=== PATIENT | female | born 1935 | race Caucasian/White ===

== ENCOUNTER → 2020-02-21 17:12 | Outpatient (CLI) | payer MEDICARE, SELFPAY ==
[2020-02-21 17:31] LABS: Absolute Neutrophil Count 3.2 X10^3/uL (2.0-7.7); Basophil# 0.05 X10^3/uL; Basophil% 0.8 % (0-1); Eosinophil# 0.24 X10^3/uL; Eosinophils% 3.8 % (0-5); Hemoglobin 13.1 g/dL (12.0-15.0); Lymphocyte % 33.5 % (19-41); Mean Corp Hgb Conc 32.8 g/dL (32-36); Mean Corpuscular Hgb 33.2 pg (27.0-32.0); Mean Corpuscular Volume 101.3 fL (81-99); Mean Platelet Vol. 9.7 fl (6.2-12.0); Monocyte# 0.66 X10^3/uL; Monocyte% 10.5 % (0-10); NRBC Flagged by Analyzer 0 % (0-5); Neutrophil % 51.1 % (47-70); Platelet Count 262 K/mm3 (150-450); RBC Distribution Width SD 45.3 fl (35.1-43.9); Red Blood Count 3.95 M/mm3 (4.2-5.4); White Blood Count 6.3 K/mm3 (4.4-11.0)
[2020-02-21 18:32] LABS: Vitamin B12 1170 pg/mL (211-911); Vitamin D,25 Hydroxy 53.8 ng/mL
[2020-02-21 18:52] LABS: AST(SGOT) 24 U/L (15-37); Alanine Aminotransfer ALT/SGPT 24 U/L (13-56); Albumin, Serum 3.7 g/dL (3.2-5.0); Alkaline Phosphatase 94 U/L (45-117); Anion Gap 3 (5-15); BUN 19 mg/dL (7-18); BUN/Creat Ratio 25.2 RATIO (10-20); Calcium,Total 9.6 mg/dL (8.5-10.1); Chloride 107 mmol/L (98-107); Creatinine, Serum 0.75 mg/dL (0.55-1.02); EST Glomerular Filtration Rate 78 mL/min (>60); Est Glom Filt Rate - Afr Amer 94 mL/min (>60); Globulin 3.8 g/dL (2.2-4.2); Glucose 97 mg/dL (74-106); Protein, Total 7.5 g/dL (6.4-8.2); Sodium Level 141 mmol/L (136-145)
[2020-02-22 06:29] LABS: Rapid Plasmin Reagin (RPR) NONREACTIVE (NONREACTIVE)
== END ==
PROVIDERS: PCP Family Medicine Geriatric Medicine; Visit Provider Family Medicine Geriatric Medicine
DX: R53.83 Other fatigue (principal); E55.9 Vitamin D deficiency, unspecified; F03.90 Unspecified dementia, unspecified severity, without behavioral disturbance, psychotic disturbance, mood disturbance, and anxiety
CPT/HCPCS: 36415; 80053; 82306; 82607; 82746; 84443; 85025; 86592

== ENCOUNTER → 2020-02-24 10:51 | Outpatient (CLI) | payer MEDICARE, SELFPAY ==
--- NOTE | 2020-02-24 10:57 | CT_ITS ---
STUDY: CT BRAIN WITHOUT CONTRAST REASON FOR EXAM: Female, 85 years old. DEMENTIA RADIATION DOSAGE (If Supplied By Facility): CTDIvol = ( 44.99 ) mGy, DLP = ( 779.24 ) mGycm TECHNIQUE: Transaxial CT imaging of the brain was performed without administration of intravenous contrast material. Individualized dose optimization techniques were used for this CT. COMPARISON: No relevant priors. FINDINGS: Normal soft tissue structures. Normal calvarium. There is mild cerebral atrophy with widening of the extra-axial spaces and ventricular dilatation. There are areas of decreased attenuation within the white matter tracts of the supratentorial brain, consistent with microvascular disease changes. Normal basal ganglia and thalami. Normal brainstem. Normal cerebellum. There is no intracranial hemorrhage. There are no findings of an acute ischemic infarction. Normal visualized paranasal sinuses. CT/Brain/Head without Contrast IMPRESSION: 1. No intracranial hemorrhage or mass effect. 2. Central parenchymal volume loss. White matter changes that are nonspecific but most commonly associated with chronic small vessel ischemic disease. Electronically Signed: Neftaly Ridley MD (Brooks) at 11:25 EDT , Service support ,
== END ==
LOC: CT 10:54
PROVIDERS: PCP Family Medicine Geriatric Medicine; Referring Provider Family Medicine Geriatric Medicine; Visit Provider Family Medicine Geriatric Medicine
DX: F03.90 Unspecified dementia, unspecified severity, without behavioral disturbance, psychotic disturbance, mood disturbance, and anxiety (principal)
CPT/HCPCS: 70450

== ENCOUNTER → 2020-03-05 16:38 | Outpatient (CLI) | payer MEDICARE, SELFPAY ==
--- NOTE | 2020-03-05 16:42 | RAD_ITS ---
HISTORY: Fall, most pain in right hip. Patient unable to cooperate and refused to do the laterals. ADDITIONAL HISTORY: None provided. EXAMINATION/TECHNIQUE: XR Hips Bilateral with Pelvis when performed; 2 Views Bilateral Number of images including paperwork: 3 COMPARISON: None FINDINGS: BONES: No acute fracture. JOINTS: No subluxation. Severe degenerative changes of the right hip. Moderate degenerative changes of the left hip. Degenerative changes of the visible spine and sacroiliac joints. SOFT TISSUES: No distinct foreign body. RAD/Hips B/L min 2 views w/ Pelvis IMPRESSION: Degenerative changes without acute osseous abnormality. at 0633 Reported and signed by: Ambar Platt MD Electronically Signed: Ambar Platt MD at 6:32 EDT Tel , Service support ,
== END ==
PROVIDERS: PCP Family Medicine Geriatric Medicine; Referring Provider Family Medicine Geriatric Medicine; Visit Provider Family Medicine Geriatric Medicine
DX: M25.559 Pain in unspecified hip (principal); M25.529 Pain in unspecified elbow; W19.XXXA Unspecified fall, initial encounter
CPT/HCPCS: 73521

== ENCOUNTER 2020-03-11 16:53 | Inpatient (IN) | payer MEDICARE, SELFPAY ==
[2020-03-11 16:54] VITALS: BP 125/76; PULSE 87; RESP 16; TEMP 36.4; O2SAT 98; BMI 19.3
--- NOTE | 2020-03-11 17:07 | CT_ITS ---
STUDY: CT PELVIS WITHOUT CONTRAST REASON FOR EXAM: Female, 85 years old. FELL 1 WEEK AGO. SEVERE ALZHEIMERS. CONFUSION. RADIATION DOSAGE (If Supplied By Facility): CTDIvol = ( 12.46 ) mGy, DLP = ( 335.80 ) mGycm TECHNIQUE: Transaxial imaging of the pelvis was performed with oral contrast, and without intravenous administration of contrast material. Individualized dose optimization techniques were used for this CT. COMPARISON: None. FINDINGS: Comminuted mildly displaced fracture of the right superior ramus is present as well as a minimally displaced oblique fracture through the mid aspect of the right inferior pubic ramus. No visualized fractures of the hips or remaining pelvic bony structures. Moderate degenerative changes are present in the right hip joint. Normal urinary bladder. Normal visualized small intestine. There are multiple colonic diverticula of the sigmoid colon consistent with chronic diverticulosis. There is no pelvic fluid. There is no pelvic mass lesion or lymphadenopathy. There is absence of the uterus consistent with a prior hysterectomy. Normal visualized pelvic arteries. A small left inguinal hernia is present containing fat as well as several small bowel loops without incarceration or obstruction. There are diffuse degenerative changes of the visualized lumbar spine. Small left calcified buttock granuloma noted. CT/Pelvis without IV Contrast IMPRESSION: 1. Acute comminuted fracture of the right superior ramus and small oblique fracture through the right inferior pubic ramus. 2. Sigmoid diverticulosis Electronically Signed: Kiran Rodriguez MD at 17:52 EDT , Service support ,
--- NOTE | 2020-03-11 17:07 | CT_ITS ---
STUDY: CT LUMBAR SPINE WITHOUT CONTRAST REASON FOR EXAM: Female, 85 years old. FELL 1 WEEK AGO. SEVERE ALZHEIMERS. CONFUSION. RADIATION DOSAGE (If Supplied By Facility): CTDIvol = ( 15.94 ) mGy, DLP = ( 491.19 ) mGycm TECHNIQUE: The patient was scanned in a multi detector CT scanner. High resolution transaxial imaging was performed. Sagittal and coronal images were reconstructed. Individualized dose optimization techniques were used for this CT. COMPARISON: None FINDINGS: An acute mild compression fracture of the T12 vertebral body is present with minimal cortical offset of the superior endplate fragments and no significant retropulsion. No additional acute fractures are seen. The bony structures are diffusely demineralized. Normal lumbar lordosis. There is no substantial scoliosis. Mild to moderate disc space narrowing is present at the L4-L5 and L5-S1 levels. Anterolisthesis of L4 and L5 of 8.2 mm. Additional multilevel degenerative changes are present. Unremarkable visualized paraspinous soft tissue structures. CT/Spine Lumbar without Contrast IMPRESSION: 1. Mild acute compression fracture of the T12 vertebral body. Electronically Signed: Kiran Rodriguez MD at 17:57 EDT , Service support ,
[2020-03-11 17:11] VITALS: O2SAT 98
--- NOTE | 2020-03-11 17:13 | ED.VIS.GEN ---
History of Present Illness Chief Complaint: Fall Informant: Patient Onset: Days Context: Gradual Onset Timing: Continuous Current Severity: Mild Maximum Severity: Moderate Narrative: The patient is an 85-year-old female with medical history significant for rather advanced dementia who is on Seroquel and Ativan that presents to the emergency department with reported pain after a fall. The patient had a mechanical fall on Wednesday of last week. She landed on her right side. She did follow with her primary care, Dr. Haile. They attempted x-rays and were only able to get a few views of the pelvis. She was doing well, but over the weekend has had some decline where now she is having a difficult time walking. The daughter at bedside who helps care for her states that she will complain intermittently of pain that seems to be in her groin and pelvis. History is hard to gather from the patient given rather advanced dementia. Prior similar symptoms: No Recent Illness/Hospitalization: No Past Medical History - Allergies and Home Meds Allergies/Adverse Reactions: Allergies Penicillins [PCN] Allergy (Verified 03/11/20 16:54) PT UNSURE OF REACTION Primary Care Physician: Tom Haile Chi, MD [Primary Care Provider] - Prior records reviewed: Yes Past Medical History: - - Severe dementia Surgical History: noncontributory Lives: With Family - Family History Maternal Family History: Reports: No pertinent history Paternal Family History: Reports: No pertinent history Review of Systems ROS: Unable to Obtain Physical Exam Vital Signs/Narrative: Vital Signs Temp Pulse Resp BP Pulse Ox 03/11/20 16:54 97.6 F L 87 16 125/76 H 98 Inital Vital Signs reviewed: Yes General: Well nourished, Well developed, No Acute Distress Head: Normocephalic, Atraumatic Eyes: Perrl, EOMI ENT: Moist mucous membranes, No rhinorrhea Neck: Supple, Nontender Cardiovascular: Regular rate, Regular rhythm, No murmurs Respiratory: No distress, CTA bilaterally, Chest nontender Abdomen: Soft, Nontender, Nondistended, Normal bowel sounds Back: Nontender, Normal Inspection Extremities: Nontender, No edema Skin: Normal color, No rash Neurological: Alert, Cranial nerves II-XII grossly intact, Normal Strength, Normal Sensation Psychological: Normal affect, Normal Mood Diagnostic/Tx/Re-eval Clinical Impression(s) from Imaging Studies Lumbar Spine CT 03/11/20 17:07 IMPRESSION: 1. Mild acute compression fracture of the T12 vertebral body. Electronically Signed: Kiran Rodriguez MD at 17:57 EDT , Service support , Pelvis CT 03/11/20 17:07 IMPRESSION: 1. Acute comminuted fracture of the right superior ramus and small oblique fracture through the right inferior pubic ramus. 2. Sigmoid diverticulosis Electronically Signed: Kiran Rodriguez MD at 17:52 EDT , Service support , - Medical Decision Making The patient presents with pelvic pain that is intermittent. She has lost 2 levels of function since her fall. I did look at her x-rays which were relatively unremarkable. I did obtain a CT scan of her pelvis and of her lumbar spine. She does have fractures of the inferior and superior right pubic rami. She also has a T12 compression fracture. Her daughter is very concerned given her diminished function at home and her advanced dementia. I do feel the most prudent plan of care would be admission for physical therapy to determine with the patient's needs are going to be. Family is comfortable with this plan of care. Impression 1. Right pubic rami fracture 2. T12 compression fracture 3. Ambulatory dysfunction ED Disposition - Plan for ED Patient: Referrals: Tom Haile Chi, MD [Primary Care Provider] -
--- NOTE | 2020-03-11 18:15 | CM.ED ---
Social Work Consult: Resources/Support Informant: Dr. Starks Chief Complaint: Patient presenting to the ER after a fall. Marital/Social History: . HCPOA/LW: Patient daughterPina is HCPOA. PCP: Dr. Haile Living Situation: Lives with daughter, son-in-law, and granddaughter. Support/Resources: No active community resources. Mental Health Treatment/History: Denies Prior level of functioning: Wheelchair level recently due to fall and increasing debility. Mental Status Exam: Alert to self. Patient diagnosed with Dementia and per patient daughter is non verbal most of the time. Patient has difficulty with direct commands such as come to the table. Appearance/General Behavior: Pleasant. Patient calm during assessment. Patient would look at and smile towards this social media senior associate with no verbal response. Assessment: Met with patient and patient daughterPina in room. Introduced self and social media senior associate role. Patient/patient daughter agreeable to speaking with this social media senior associate. Pina reports to be primary career development facilitator for patient and Pina's niece (patients granddaughter). Pina's niece is diagnosed with Autism and Pina is has guardianship. Pina reports that Pina's travels and is often not around the home Mon-Fri. Pina reports to not want patient to be roasterman in a shelter and to want to continue with caring for patient in the home. Pina reports that patient PCP, Dr. Haile did broach conversation of Hospice to assist with respite for Pina. Pina tearful and states to not be sure if I am ready for hospice services. This social media senior associate explaining how hospice could help with respite but also other options such as Adult Day Care, PASSPORT and Private Duty aides. During conversation with Pina Starks entering the room and informing that patient will need to be admitted to acute care due to fractures and then would benefit from Senior Living home stay. Pina voicing understanding. This social media senior associate explaining correction vs. extended care stay in a shelter. Pina provided with list of nursing homes, hospice information, private duty aides, PASSPORT, and Adult Day Care. Pina counseled on career development facilitator burnout and confirming to need assistance. This social media senior associate encouraging Pina to explore respite options and to be open to a correction home placement or hospice services. Active support and listening provided. Pina has been primary caregiver for patient for the past 3 years. PLAN: Admit to acute. Social Work to continue to follow. Carol CHRISTENSEN, AZUCENA
--- NOTE | 2020-03-11 18:25 | HP.PCM_ITS ---
History of Present Illness Date of Admission: 03/11/20 Chief Complaint: debility, mechanical fall, The patient is a 85 year old F with a past medical history of significant dementia who was admitted through the ED on 03/11/2020 with a complaint of debility, weakness and mechanical fall. History was taken from the daughter was by her bedside. Patient had a fall about a week ago and landed on her right side. Daughter says she didnt witness the fall. Patient had stepped out with her son in law, and per daughter, it appears she lost her footing and fell. She was unable to ambulate very well and so followed up with her primary care doctor. X-rays were ordered but only few views of the pelvis were obtained as patient was not very cooperative due to her dementia and debility. Over the weekend, patient declined and was having difficulty weightbearing and ambulating as well as transferring. She also can seem to be complained intermittently of pain in her groin and pelvis and right hip. Family therefore decided to bring her into the ED. Review of systems was otherwise negative. The ED, vitals show temperature of 97.6 Fahrenheit with blood pressure of 125/76, pulse rate of 87 and respiratory rate of 16. She was saturating at 98% on room air. CT of the pelvis showed an acute comminuted fracture of the right superior rami and a small oblique fracture through the right inferior pubic rami as well as sigmoid diverticulosis. Lumbar spine CT done showed mild acute compression fracture in the T12 vertebral body. She has been admitted to be managed for debility due to mechanical fall and pubic rami fractures as well as mild compression fracture. [] Past Medical History Allergies Penicillins [PCN] Allergy (Verified 03/11/20 16:54) PT UNSURE OF REACTION Home Medications: Ambulatory Orders Medication Instructions Recorded Galantamine Hbr [Razadyne] 4 mg PO BIDCM 03/11/20 Lorazepam 0.5 - 1 mg PO DAILY PRN 03/11/20 Magnesium Oxide [Magnesium] 250 mg PO DAILY 03/11/20 Quetiapine Fumarate 12.5 mg PO BID 03/11/20 Surgical History: noncontributory Psychiatric History: - - dementia Lives: With Family Smoking Status: Never smoker Alcohol: None Drugs: None - *Family History Maternal History Items: No pertinent history Paternal History Items: Cancer Review of Systems Constitutional: Denies: Chills, Fever, Malaise, Weakness, Weight Change HEENT: Denies: Head Aches, Sinus Congestion, Sinus Drainage Cardiovascular: Denies: Chest Pain, Palpitations Respiratory: Denies: Cough, Shortness of breath at rest, Sputum production Gastrointestinal: Denies: Abdominal Pain, Nausea, Vomiting Genitourinary: Denies: Dysuria Musculoskeletal: Reports: Back Pain, Joint Pain - right hip pain. Denies: Joint Tenderness Skin: Denies: Rash, Wounds Neurological: Denies: Numbness, Tingling, Focal weakness Psychiatric: Denies: Anxiety, Depression, Homicidal Ideations, Suicidal Ideations Hematologic/ Lymphatic: Denies: Easy Bruising, Easy Bleeding VTE Information - Inpt Only VTE Present on Admission: No VTE Pharm Prophylaxis ordered?: Yes - Physical Exam Vitals/I&O's: Vital Signs Temp Pulse Resp BP Pulse Ox 97.6 F L 87 16 125/76 H 98 03/11/20 16:54 03/11/20 16:54 03/11/20 16:54 03/11/20 16:54 03/11/20 17:11 Oxygen Delivery Method Room Air Weight: 113 lb Body Mass Index (BMI) 19.3 General: Alert, Confused, Disoriented HEENT: Atraumatic, PERRLA, EOMI, Normocephalic Oral: Dry Mucosa Neck: Supple, No JVD, Negative Carotid Bruits Lungs: Clear to auscultation, Normal air movement, No rhonchi, No wheeze, No rales Cardiovascular: Regular rate, Regular Rhythm, Normal S1, Normal S2, No murmurs Abdomen: Bowel Sounds Present, Soft, Non Tender, Non-Distended, No Hepato- splenomegaly Extremities: No clubbing, No cyanosis, No edema, Capillary Refill Less than 3 Seconds Skin: No rashes, No breakdown Musculoskeletal: - - mild tenderness on palpation of right hip and lower back, and with flexion of hip joint Lymphatic: No Cervical, Supraclavicular, or Inguinal Adenopathy Neurological: Cranial nerves II-XII grossly intact, Neuro grossly intact Psych/Mental Status: - - confused Assessment/Plan 85-year-old admitted with a complaint of debility. #Debility due to mechanical fall * Lumbar spine CT showed mild acute compression fracture of the T12 vertebral body * CT of the pelvis also showed acute comminuted fracture of the superior pubic rami as well as fracture of the inferior pubic rami. This will likely heal with conservative management, and she will benefit from intensive PT/OT. * orthopedic surgery consulted * Consult PT OT. * Fall precautions. * Consult case management to help with discharge planning as patient will benefit from placement. #Superior and inferior pubic rami fractures due to mechanical fall * As above * PT/PT consult * PO tylenol, PO oxycodone nad IV morphine prn * #Mild compression fracture of T12 due to mechanical fall * as under #debillity and #fracture * If pain is persistent, may need referral to pain management. * #Dementia with behavioral disturbance * On Seroquel and lorazepam * DVT prophylaxis: lovenox Code Status: * Patient's daughter counseled extensively about different types of CODE STATUS including full code, DNR CCA and DNR CCA. Patient still to go tearful incision felt unable to make the decision as she had never feels this kind of situation before. She therefore felt unable to make a decision and would want to think more about it. She says she knows patient is to make a decision due to her dementia and so she the daughter would have to make the decision but would want some more time to think about it. She says her mother does have a living will and she will bring it in tomorrow so we see what it says. * Code Status undecided at this time. * Total vest-cv-ajbk time 17 minutes. Inpatient E&M: 64321 Init Hosp L2 Procedures: 69772 Advncd Care Plan 30 Min
[2020-03-11 18:37] VITALS: BP 137/67; PULSE 60; RESP 16; O2SAT 100
[2020-03-11 19:06] VITALS: BP 137/67; PULSE 60; RESP 15; TEMP 36.4; O2SAT 100
[2020-03-11 19:46] LABS: Absolute Lymphocyte Count 2.05 X10^3/uL (0.83-4.51); Absolute Neutrophil Count 3.6 X10^3/uL (2.0-7.7); Basophil# 0.05 X10^3/uL; Basophil% 0.7 % (0-1); Eosinophil# 0.33 X10^3/uL; Eosinophils% 4.9 % (0-5); Hemoglobin 12.4 g/dL (12.0-15.0); Lymphocyte # 2.05 X10^3/ul (4.0); Lymphocyte % 30.2 % (19-41); Mean Corp Hgb Conc 32.6 g/dL (32-36); Mean Corpuscular Hgb 32.7 pg (27.0-32.0); Mean Corpuscular Volume 100.3 fL (81-99); Mean Platelet Vol. 9.7 fl (6.2-12.0); Monocyte# 0.78 X10^3/uL; Monocyte% 11.5 % (0-10); NRBC Flagged by Analyzer 0 % (0-5); Neutrophil # 3.56 X10^3/uL (2.7-7.7); Neutrophil % 52.4 % (47-70); Platelet Count 301 K/mm3 (150-450); RBC Distribution Width CV 11.9 % (11.6-14.6); RBC Distribution Width SD 44.2 fl (35.1-43.9); Red Blood Count 3.79 M/mm3 (4.2-5.4); White Blood Count 6.8 K/mm3 (4.4-11.0)
[2020-03-11 19:52] VITALS: BP 135/72; PULSE 53; RESP 16; TEMP 36.4; O2SAT 96
[2020-03-11 19:59] VITALS: BMI 19.6
[2020-03-11 20:05] LABS: Anion Gap 4 (5-15); BUN 19 mg/dL (7-18); BUN/Creat Ratio 28.5 RATIO (10-20); Calcium,Total 9.6 mg/dL (8.5-10.1); Chloride 108 mmol/L (98-107); Creatinine, Serum 0.67 mg/dL (0.55-1.02); EST Glomerular Filtration Rate 89 mL/min (>60); Est Glom Filt Rate - Afr Amer 108 mL/min (>60); Glucose 96 mg/dL (74-106); Potassium 4.5 mmol/L (3.5-5.1); Sodium Level 143 mmol/L (136-145)
[2020-03-11 20:10] VITALS: BMI 19.6
--- NOTE | 2020-03-11 20:30 | NURSING ---
Patient pulling telemetry leads off at this time. Left off due to agitation. Daughter requesting to have four side rails up for safety.
[2020-03-11] MEDS: LORazepam 1 MG Tablet PO (20:51)
[2020-03-11] MEDS: QUEtiapine 25 MG Tablet 12.5 MG PO (20:51)
[2020-03-11] MEDS: Morphine 2 MG/ML Syringe IV (21:57)
--- NOTE | 2020-03-11 23:00 | NURSING ---
Pt trying to get OOB, states she has to go. Very restless, setting off bed exit frequently. Pt is alert to self only which is her baseline. Agitated with redirection. Fallon MAGNETIC HEALER in to sit with pt at this time.
[2020-03-11] MEDS: Haloperidol Lactate 5 MG/ML Vial IM (23:44)
[2020-03-12] MEDS: 0.9% Normal Saline 1,000 ML 100 ML IV ×2 (00:19→10:15)
[2020-03-12 02:30] VITALS: BP 93/44; PULSE 82; RESP 18; TEMP 37.2; O2SAT 95
[2020-03-12 06:26] VITALS: BP 111/51; PULSE 67; RESP 16; TEMP 37.2; O2SAT 98
[2020-03-12 06:28] LABS: Absolute Lymphocyte Count 1.71 X10^3/uL (0.83-4.51); Absolute Neutrophil Count 2.4 X10^3/uL (2.0-7.7); Basophil# 0.04 X10^3/uL; Basophil% 0.8 % (0-1); Eosinophil# 0.36 X10^3/uL; Eosinophils% 6.9 % (0-5); Hematocrit 34.1 % (37-47); Hemoglobin 11.2 g/dL (12.0-15.0); Lymphocyte # 1.71 X10^3/ul (4.0); Lymphocyte % 32.8 % (19-41); Mean Corp Hgb Conc 32.8 g/dL (32-36); Mean Corpuscular Hgb 32.7 pg (27.0-32.0); Mean Corpuscular Volume 99.7 fL (81-99); Mean Platelet Vol. 9.3 fl (6.2-12.0); Monocyte# 0.73 X10^3/uL; NRBC Flagged by Analyzer 0 % (0-5); Neutrophil # 2.36 X10^3/uL (2.7-7.7); Neutrophil % 45.3 % (47-70); Platelet Count 265 K/mm3 (150-450); RBC Distribution Width CV 11.9 % (11.6-14.6); RBC Distribution Width SD 43.4 fl (35.1-43.9); Red Blood Count 3.42 M/mm3 (4.2-5.4); White Blood Count 5.2 K/mm3 (4.4-11.0)
[2020-03-12 06:52] LABS: Anion Gap 4 (5-15); BUN 17 mg/dL (7-18); Calcium,Total 8.6 mg/dL (8.5-10.1); Chloride 110 mmol/L (98-107); Creatinine, Serum 0.61 mg/dL (0.55-1.02); EST Glomerular Filtration Rate 99 mL/min (>60); Est Glom Filt Rate - Afr Amer 120 mL/min (>60); Glucose 94 mg/dL (74-106); Potassium 3.7 mmol/L (3.5-5.1); Sodium Level 142 mmol/L (136-145)
--- NOTE | 2020-03-12 07:30 | PCM.PN.HOSP ---
Reason for Visit: Mechanical fall Delirium Subjective: Patient is an 85-year-old lady admitted following acute mechanical fall. Imaging studies demonstrated acute compression fracture involving T12 vertebral body admitted to regular nursing floor for further management. Patient was apparently delirious during the evening Objective: GENERAL: Lethargic but arousable HEENT: Atraumatic; EYES; Anicteric, NECK; supple, normal thyroid, RESPIRATORY: Diminished to auscultation CARDIOVASCULAR: Regular S1 S2, GI: soft, normoactive bowel sounds, : No Renal angle tenderness; EXTREMITIES: No edema, no clubbing, MUSCULOSKELETAL: no muscle waisting NEURO: no lateralizing signs. SKIN: No Rash PSYCH; delirious Vitals/I&O's: Vital Signs Temp Pulse Resp BP Pulse Ox 99.0 F 67 16 111/51 L 98 03/12/20 06:26 03/12/20 06:26 03/12/20 06:26 03/12/20 06:26 03/12/20 06:26 Oxygen Delivery Method Room Air Weight: 51.9 kg Body Mass Index (BMI) 19.6 Intake and Output for Last 24 Hours 03/10/20 03/11/20 03/12/20 23:59 23:59 23:59 Intake Total 400 / 400 Output Total 0 / 0 Balance 400 / 400 Laboratory Results 03/11/20 18:50: WBC 6.8, RBC 3.79 L, Hgb 12.4, Hct 38.0, MCV 100.3 H, MCH 32.7 H, MCHC 32.6, RDW Std Deviation 44.2 H, RDW Coeff of Nidhi 11.9, Plt Count 301, MPV 9.7, Immature Gran % (Auto) 0.300, Neut % (Auto) 52.4, Lymph % (Auto) 30.2, Howell % (Auto) 11.5 H, Eos % (Auto) 4.9, Baso % (Auto) 0.7, Absolute Neuts (auto) 3.6, Absolute Lymphs (auto) 2.05, Nucleated RBC % 0 03/11/20 18:50: Sodium 143, Potassium 4.5, Chloride 108 H, Carbon Dioxide 31.0, Anion Gap 4 L, BUN 19 H, Creatinine 0.67, Estim Creat Clear Calc 33.70, Est GFR (MDRD) Af Amer 108, Est GFR (MDRD) Non-Af 89, BUN/Creatinine Ratio 28.5 H, Glucose 96, Calcium 9.6 03/12/20 05:47: WBC 5.2, RBC 3.42 L, Hgb 11.2 L, Hct 34.1 L, MCV 99.7 H, MCH 32.7 H, MCHC 32.8, RDW Std Deviation 43.4, RDW Coeff of Nidhi 11.9, Plt Count 265, MPV 9.3, Immature Gran % (Auto) 0.200, Neut % (Auto) 45.3 L, Lymph % (Auto) 32.8, Howell % (Auto) 14.0 H, Eos % (Auto) 6.9 H, Baso % (Auto) 0.8, Absolute Neuts (auto) 2.4, Absolute Lymphs (auto) 1.71, Nucleated RBC % 0 03/12/20 05:47: Sodium 142, Potassium 3.7, Chloride 110 H, Carbon Dioxide 28.0, Anion Gap 4 L, BUN 17, Creatinine 0.61, Estim Creat Clear Calc 33.70, Est GFR (MDRD) Af Amer 120, Est GFR (MDRD) Non-Af 99, BUN/Creatinine Ratio 28.0 H, Glucose 94, Calcium 8.6 Current Medications Acetaminophen (Tylenol) 650 mg PO Q6H PRN PRN PRN Reason: Pain Score 1-10/Temp > 100.7 F Enoxaparin Sodium (Lovenox) 40 mg SC DAILY [facility] Sodium Chloride () 1,000 mls @ 100 mls/hr IV .Q10H [facility] Stop: 03/12/20 18:59 Last Admin: 03/12/20 00:19 Dose: 100 mls/hr Documented by: Lorazepam (Ativan) 1 mg PO DAILY PRN PRN Reason: ANXIETY Last Admin: 03/11/20 20:51 Dose: 1 mg Documented by: Morphine Sulfate () 2 mg IV Q3H PRN PRN PRN Reason: Pain Score 6-10/10 Last Admin: 03/11/20 21:57 Dose: 2 mg Documented by: Ondansetron HCl (Zofran) 4 mg IV Q8H PRN PRN PRN Reason: NAUSEA/VOMITING Oxycodone HCl (Oxyir) 5 mg PO Q4H PRN PRN PRN Reason: Pain Score 4-5/10 Quetiapine Fumarate (Seroquel) 12.5 mg PO BID JUAN Last Admin: 03/11/20 20:51 Dose: 12.5 mg Documented by: Sodium Chloride () 10 - 40 ml IV UD PRN PRN Reason: SALINE FLUSH STROKE Vital Signs/Narrative: Vital Signs Temp Pulse Resp BP Pulse Ox 03/12/20 06:26 99.0 F 67 16 111/51 L 98 Medical Necessity - Tobacco Use Smoking Status: Never smoker Tobacco Use: Non-smoker Assessment/Plan Patient is an 85-year-old lady admitted following acute mechanical fall. Imaging studies demonstrated acute compression fracture involving T12 vertebral body admitted to regular nursing floor for further management. Patient was apparently delirious during the evening 1. Acute mechanical fall with T12 vertebral compression fracture and acute comminuted fracture of the superior pubic rami as well as inferior pubic rami -Admitted to regular nursing floor for conservative management including PT OT, pain management 2. Physical debility ?Secondary to above 3. Dementia with behavioral disturbance ?Patient was placed on Seroquel at night with sitter by the bedside 4. DVT Prophylaxis ?Lovenox Code Status; family yet to decide Inpatient E&M: 17470 Subs Hosp L2
[2020-03-12] MEDS: Acetaminophen 325 MG Tablet 650 MG PO ×2 (08:43→15:18)
[2020-03-12] MEDS: oxyCODONE 5 MG Tablet PO ×2 (08:43→18:28)
[2020-03-12] MEDS: QUEtiapine 25 MG Tablet 12.5 MG PO ×2 (08:43→21:44)
[2020-03-12] MEDS: Enoxaparin 40 MG/0.4 ML Syringe SC (08:44)
--- NOTE | 2020-03-12 08:46 | CASEMGMT ---
Social Work Note HCPOA an LW are on pt's chart. Scarlett Belcher HEEL FORMER, CASTING HOUSE LABORER
[2020-03-12 09:56] VITALS: BP 94/50; PULSE 70; RESP 16; TEMP 36.5; O2SAT 96
--- NOTE | 2020-03-12 12:03 | CASEMGMT ---
Social Work Note ABHISHEK reviewed notes. Carol ZENG spoke with pt's daughter Pina who is pt's caregiver and HCPOA for pt and Pina was provided information and resources for nursing homes, Hospice, private duty aides, PASSPORT, and Adult Day Care. ABHISHEK placed a call to Pina to continue discussion of discharge plans. ABHISHEK introduced self and role at [facility]. Pina states that if pt is able to return home at all she prefers for pt to return home with assistance in the home. Pina states she is adamant about not sending pt to SNF/ECF for intermediate frame tender care. ABHISHEK asked Pina about putting pt on TCU list in the event that SNF is needed. Pina states she is agreeable to putting pt on TCU list in the event SNF is needed. Pina asked for RN to call regarding medical update. RN updated. ABHISHEK placed a call to Karina in TCU and left message regarding referral. Pt will need to be sitter and haldol free for 24 hours before being able to admit to SNF. Plan: TBD. Pina prefers to take pt home at discharge. Pt is on TCU list in the event SNF is needed. Scarlett Belcher HEMATOLOGY NURSE, OFFICE CLERK ASSISTANT
[2020-03-12] MEDS: Magnesium Chloride 64 MG Delay Rel.Tablet 128 MG PO (12:40)
[2020-03-12 14:02] VITALS: BP 99/52; PULSE 73; RESP 16; TEMP 36.9; O2SAT 96
[2020-03-12] MEDS: Galantamine Hydrobromide 4 MG Tablet PO (15:21)
--- NOTE | 2020-03-12 16:01 | CHAPLAIN ---
Type of Pastoral Visit _x__ Initial Visit ___ Follow-up Visit ___ On-call Visit ___ General Patient Visit ___ Spiritual Assessment ___ Family Conference ___ Bereavement ___ Rapid Response ___ Code Blue ___ Other (describe below) Pastoral Care Referral From ___ Patient _x__ Family _x__ Nurse ___ Physician ___ Criminology Professor ___ Mobile Battery Technician ___ Other (describe below) Sacrament/Intervention ___ Active listening ___ Anointing ___ Presybeterian ___ Bereavement ___ Communion ___ Teresita exploration ___ ___ Life review _x__ Prayer ___ Reconciliation ___ Sacrament of Sick _x__ Supportive presence ___ Wedding ___ Other (describe below) Pastoral Comments patient was alert; RN had just finished with pt in room; this director video sat at bedside and interacted with patient; when she would laugh this director video would laugh, when patient spoke some unknown words, this director video repeated them; when pt spoke known words this director video would repeat and pt would say 'yes' or nod head; pt was calm and at end of time together the patient initiated a verbal thank you several times;
--- NOTE | 2020-03-12 16:21 | CONS.ORTHO ---
Problem List (1) Fracture of right inferior pubic ramus Status: Acute Qualifiers: Encounter type: initial encounter Fracture type: closed Qualified Code(s): S32.591A - Other specified fracture of right pubis, initial encounter for closed fracture (2) Fracture of right superior pubic ramus Status: Acute Qualifiers: Encounter type: initial encounter Fracture type: closed Qualified Code(s): S32.511A - Fracture of superior rim of right pubis, initial encounter for closed fracture - Consult Date of Consult: 03/12/20 - Reason for Consult This is an 85-year-old female who experienced a mechanical fall landing on her right side approximately 1 week ago. The patient was initially under the care of her primary care provider Dr. Haile. The family noticed the patient was declining significantly over this past weekend. It was brought into the emergency room.
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
[2020-03-12] MEDS: 0.9% Saline Lock 10 ML Syringe IV (19:12)
[2020-03-12] MEDS: Morphine 2 MG/ML Syringe IV (19:12)
[2020-03-12 19:54] VITALS: BP 156/63; PULSE 89; RESP 18; TEMP 37; O2SAT 96
[2020-03-13 05:42] LABS: Hemoglobin 11.2 g/dL (12.0-15.0); Mean Corp Hgb Conc 32.9 g/dL (32-36); Mean Corpuscular Hgb 32.7 pg (27.0-32.0); Mean Corpuscular Volume 99.1 fL (81-99); Mean Platelet Vol. 9.2 fl (6.2-12.0); Platelet Count 260 K/mm3 (150-450); RBC Distribution Width CV 11.9 % (11.6-14.6); RBC Distribution Width SD 43.8 fl (35.1-43.9); Red Blood Count 3.43 M/mm3 (4.2-5.4)
[2020-03-13 06:15] LABS: Anion Gap 5 (5-15); BUN 13 mg/dL (7-18); BUN/Creat Ratio 23.4 RATIO (10-20); Chloride 108 mmol/L (98-107); Creatinine, Serum 0.56 mg/dL (0.55-1.02); EST Glomerular Filtration Rate 111 mL/min (>60); Est Glom Filt Rate - Afr Amer 134 mL/min (>60); Glucose 100 mg/dL (74-106); Magnesium 2.3 mg/dL (1.6-2.6); Potassium 3.9 mmol/L (3.5-5.1); Sodium Level 139 mmol/L (136-145)
[2020-03-13 06:35] VITALS: BP 164/79; PULSE 94; RESP 16; TEMP 36.7; O2SAT 98
[2020-03-13] MEDS: oxyCODONE 5 MG Tablet PO ×2 (06:45→13:10)
[2020-03-13] MEDS: Magnesium Chloride 64 MG Delay Rel.Tablet 128 MG PO (08:35)
[2020-03-13] MEDS: QUEtiapine 25 MG Tablet 12.5 MG PO ×2 (08:35→22:07)
[2020-03-13] MEDS: Galantamine Hydrobromide 4 MG Tablet PO ×2 (08:36→16:31)
[2020-03-13] MEDS: Enoxaparin 40 MG/0.4 ML Syringe SC (08:44)
[2020-03-13 08:57] VITALS: BP 124/47; PULSE 85; RESP 16; TEMP 37.1; O2SAT 93
[2020-03-13 14:22] VITALS: BP 134/64; PULSE 80; RESP 16; TEMP 36.7; O2SAT 99
--- NOTE | 2020-03-13 16:03 | CASEMGMT ---
Addendum entered by Scarlett Belcher 03/13/20 16:24: Pt's daughter Pina is present at [facility]. SW in to speak with Pina. Pina confirms plan is TCU at discharge. SW answered Pina's questions regarding TCU. SW updated Pina that plan will be TCU tomorrow. Pina states understanding. SW placed a call to Karina in TCU and updated her plan is TCU tomorrow. Plan: TCU tomorrow Original Note: Social Work Note SW updated by physician that pt's daughter Pina is agreeable to TCU at discharge. SW placed a call to Karina in TCU and left message. SW received message from Karina in TCU requesting discharge tomorrow. SW updated physician. Plan: TCU Tomorrow Scarlett Belcher PLATE FORMER, FOREST ECONOMICS PROFESSOR
--- NOTE | 2020-03-13 19:06 | PCM.PROGNOTE ---
Patient Problems: Active and Suspected Problems Fracture of right inferior pubic ramus (Acute) Fracture of right superior pubic ramus (Acute) Subjective: Seen and examined today, she remains confused and her speech is not fluent. I talked to her daughter who was in the room today, her daughter has consented to let her go short-term to TCU for rehab services. There will not be a bed until tomorrow for this. - Physical Exam Vitals/I&O's: Vital Signs Temp Pulse Resp BP Pulse Ox 98.1 F 80 16 134/64 H 99 03/13/20 14:22 03/13/20 14:22 03/13/20 14:22 03/13/20 14:22 03/13/20 14:22 Oxygen Delivery Method Room Air Weight: 51.9 kg Body Mass Index (BMI) 19.6 Intake and Output for Last 24 Hours 03/11/20 03/12/20 03/13/20 23:59 23:59 23:59 Intake Total 2598.33 / 2598.33 550 / 550 Output Total 700 / 700 900 / 900 Balance 1898.33 / 1898.33 -350 / -350 General: Alert, Cooperative, No apparent distress, Well developed HEENT: Atraumatic, PERRLA, EOMI, Normocephalic Oral: Moist Mucosa Neck: Supple, Trachea Midline, Thyroid Normal Size and Texture Lungs: Clear to auscultation, Normal air movement, No rhonchi, No wheeze, No rales Cardiovascular: Regular rate, Regular Rhythm, Normal S1, Normal S2, No murmurs, PMI Normal, No rub noted, No Gallop Abdomen: Bowel Sounds Present, Soft, Non Tender, Non-Distended Extremities: No clubbing, No cyanosis, No edema, Capillary Refill Less than 3 Seconds Skin: No rashes, No breakdown Musculoskeletal: No Tenderness to Palpation of Joints or Extremities Neurological: Cranial nerves II-XII grossly intact, Neuro grossly intact, Sensory exam intact to light touch and pain Psych/Mental Status: - - Alert but confused, she is not able to converse coherently with this examiner Laboratory Results 03/13/20 05:04: WBC 5.0, RBC 3.43 L, Hgb 11.2 L, Hct 34.0 L, MCV 99.1 H, MCH 32.7 H, MCHC 32.9, RDW Std Deviation 43.8, RDW Coeff of Nidhi 11.9, Plt Count 260, MPV 9.2 03/13/20 05:04: Sodium 139, Potassium 3.9, Chloride 108 H, Carbon Dioxide 26.0, Anion Gap 5, BUN 13, Creatinine 0.56, Estim Creat Clear Calc 33.70, Est GFR (MDRD) Af Amer 134, Est GFR (MDRD) Non-Af 111, BUN/Creatinine Ratio 23.4 H, Glucose 100, Calcium 9.0, Magnesium 2.3 03/13/20 16:00: COVID-19 (MERRY) Pending Current Medications Acetaminophen (Tylenol) 650 mg PO Q6H PRN PRN PRN Reason: Pain Score 1-10/Temp > 100.7 F Last Admin: 03/12/20 15:18 Dose: 650 mg Documented by: Enoxaparin Sodium (Lovenox) 40 mg SC DAILY [facility] Last Admin: 03/13/20 08:44 Dose: 40 mg Documented by: [facility] Last Admin: 03/13/20 16:31 Dose: 4 mg Documented by: Lorazepam (Ativan) 1 mg PO DAILY PRN PRN Reason: ANXIETY Last Admin: 03/11/20 20:51 Dose: 1 mg Documented by: Magnesium Chloride ([id number]) 128 mg PO DAILY [facility] Last Admin: 03/13/20 08:35 Dose: 128 mg Documented by: Morphine Sulfate () 2 mg IV Q3H PRN PRN PRN Reason: Pain Score 6-10/10 Last Admin: 03/12/20 19:12 Dose: 2 mg Documented by: Nutritional Formula (Lactose Free) (Ensure Enlive) 120 ml PO 4X/DAY [facility] Last Admin: 03/13/20 16:32 Dose: 120 ml Documented by: Ondansetron HCl (Zofran) 4 mg IV Q8H PRN PRN PRN Reason: NAUSEA/VOMITING Oxycodone HCl (Oxyir) 5 mg PO Q4H PRN PRN PRN Reason: Pain Score 4-5/10 Last Admin: 03/13/20 13:10 Dose: 5 mg Documented by: Quetiapine Fumarate (Seroquel) 12.5 mg PO BID [facility] Last Admin: 03/13/20 08:35 Dose: 12.5 mg Documented by: Sodium Chloride () 10 - 40 ml IV UD PRN PRN Reason: SALINE FLUSH Last Admin: 03/12/20 19:12 Dose: 10 ml Documented by: Medical Necessity - Tobacco Use Smoking Status: Never smoker Tobacco Use: Non-smoker Assessment/Plan All Active Problems Fracture of right inferior pubic ramus (Acute) Fracture of right superior pubic ramus (Acute) #1 T12 vertebral compression fracture secondary to osteoporosis-continue pain control, patient will need placement in jail facility for short-term rehab services #2 fracture of the superior pubic rami and inferior pubic rami-pain medicines will be adjusted as needed, continue PT and OT, patient will need short-term rehab services in a jail facility #3 Alzheimer's dementia #4 generalized physical debility secondary to multiple medical problems including advanced age and Alzheimer's dementia #5 osteoporosis-patient will need treatment for this with bisphosphonate and calcium supplement Inpatient E&M: 46621 Subs Hosp L2
[2020-03-13 19:47] LABS: Probe Check PASS; Specimen Processing Control PASS
[2020-03-13 21:59] VITALS: BP 148/76; PULSE 86; RESP 18; TEMP 37.1; O2SAT 99
[2020-03-14 03:13] VITALS: BP 144/73; PULSE 75; RESP 16; TEMP 36.5; O2SAT 95
[2020-03-14 05:28] LABS: Hemoglobin 11.8 g/dL (12.0-15.0); Mean Corp Hgb Conc 33.7 g/dL (32-36); Mean Corpuscular Hgb 32.8 pg (27.0-32.0); Mean Corpuscular Volume 97.2 fL (81-99); Mean Platelet Vol. 8.8 fl (6.2-12.0); Platelet Count 266 K/mm3 (150-450); RBC Distribution Width CV 11.9 % (11.6-14.6); RBC Distribution Width SD 42.6 fl (35.1-43.9); White Blood Count 6.2 K/mm3 (4.4-11.0)
[2020-03-14 05:40] LABS: Anion Gap 6 (5-15); BUN 15 mg/dL (7-18); BUN/Creat Ratio 27.1 RATIO (10-20); Chloride 106 mmol/L (98-107); Creatinine, Serum 0.55 mg/dL (0.55-1.02); EST Glomerular Filtration Rate 111 mL/min (>60); Est Glom Filt Rate - Afr Amer 134 mL/min (>60); Glucose 116 mg/dL (74-106); Potassium 3.7 mmol/L (3.5-5.1); Sodium Level 139 mmol/L (136-145)
[2020-03-14] MEDS: QUEtiapine 25 MG Tablet 12.5 MG PO (09:01)
[2020-03-14] MEDS: Magnesium Chloride 64 MG Delay Rel.Tablet 128 MG PO (09:01)
[2020-03-14] MEDS: Galantamine Hydrobromide 4 MG Tablet PO (09:02)
[2020-03-14] MEDS: Enoxaparin 40 MG/0.4 ML Syringe SC (09:02)
[2020-03-14] MEDS: Calcium Carb/Vitamin D 1 TABLET Tablet PO (09:04)
[2020-03-14 09:40] VITALS: BP 122/81; PULSE 86; RESP 16; TEMP 36.5; O2SAT 95
--- NOTE | 2020-03-14 11:52 | PCM.TXEXTCAR ---
- Diet 03/11/20 19:35 Diet: Regular - General Food consistency:: Regular Liquid Consistency:: Regular/Thin Type of Dietary Supplement:: Ensure Enlive Is pt able to select menu?: No - Therapies Weight Bearing: Weight bearing as tolerated Physical Therapy: Eval and Treat Occupational Therapy: Eval and Treat - Problem/Diagnosis (1) Thoracic compression fracture Status: Acute Current Visit: Yes (2) Fracture of right inferior pubic ramus Status: Acute Current Visit: Yes (3) Fracture of right superior pubic ramus Status: Acute Current Visit: Yes (4) Osteoporosis Status: Chronic Current Visit: Yes - Allergies/Procedures Done in Hospital Allergies/Adverse Reactions: Allergies Penicillins [PCN] Allergy (Verified 03/11/20 16:54) PT UNSURE OF REACTION Procedures: None - Type of Care/Length of Stay Estimated LOS: Convalescent Care Less Than 30 days Type of Care Needed: Skilled Rehab Potential: Good Prognosis: Good - Additional Orders/Day of Discharge H&P will serve as current which was dated: 03/11/20 Day of Discharge: 03/14/20 - Dietary and Speech Recommendations Dietitian Recommendations/Changes: Continue regular diet. Will add ensure enlive 120mL 4x/day - Follow Up Care Primary Care Physician: Tom Haile Chi, MD [Primary Care Provider] -
--- NOTE | 2020-03-14 12:35 | PHA.DC.MR ---
Pharmacy Service has performed discharge medication reconciliation for this patient. The patient's discharge medication list was reviewed for discrepancies and discrepancies were resolved. Home Medications Galantamine Hbr [Razadyne] 4 mg PO BIDCM 03/11/20 Quetiapine Fumarate 12.5 mg PO BID 03/11/20 Acetaminophen [Tylenol] 650 mg PO Q4H PRN PRN #1 tab 03/14/20 Alendronate Sodium [Fosamax] 70 mg PO Q7D@0700 #1 tab 03/14/20 Calcium Carb/Vitamin D [Os-Shashi 500MG + D] 1 tab PO BIDCM tab 03/14/20 Ensure Enlive 120 ml PO 4X/DAY liquid 03/14/20
--- NOTE | 2020-03-14 13:31 | CASEMGMT ---
Social Work Note Pt is able to discharge to TCU today. SW placed a call to Karina in TCU and updated her. SW updated RN. Pt's daughter Pina at [facility]. SW updated Pina on discharge to TCU today. Plan: TCU today Scarlett Belcher CHUTE BUILDER, ANALYSIS EVALUATOR
[2020-03-14 14:30] VITALS: BP 132/76; PULSE 84; RESP 16; TEMP 36.9; O2SAT 99
--- NOTE | 2020-03-14 14:41 | NURSING ---
report called to Sole PERES on TCU
--- NOTE | 2020-03-14 14:50 | CHAPLAIN ---
Type of Pastoral Visit ___ Initial Visit _x__ Follow-up Visit ___ On-call Visit ___ General Patient Visit ___ Spiritual Assessment ___ Family Conference ___ Bereavement ___ Rapid Response ___ Code Blue ___ Other (describe below) Pastoral Care Referral From ___ Patient _x__ Family ___ Nurse ___ Physician ___ Scroll Machine Operator ___ Blow Mold Machine Operator ___ Other (describe below) Sacrament/Intervention _x__ Active listening ___ Anointing ___ Pentecostal ___ Bereavement ___ Communion ___ Teresita exploration ___ ___ Life review _x__ Prayer ___ Reconciliation ___ Sacrament of Sick _x__ Supportive presence ___ Wedding ___ Other (describe below) Pastoral Comments met with daughter as patient slept; daughter has desire to be present as long as she can until the quarantine period begins in TCU; daughter explains mother's situation and dementia; this millwright supervisor offers support and affirmation; millwright supervisor reviews his visit on Wednesday with pt to her daughter; daughter requests future contact and presence with this patient after her transfer to TCU; pt would welcome spiritual care according to daughter;
--- NOTE | 2020-03-16 08:09 | PCM.DC.SUM ---
Discharge Date and Diagnosis - Problem List Patient Problems: Active and Suspected Problems Debility (Acute) Fall (Acute) Pelvis fracture (Acute) T12 compression fracture (Acute) Date of Admission: 03/11/20 Date of Discharge: 03/14/20 - Primary Discharge Diagnosis Acute Problems: Active Problems #1 T12 vertebral compression fracture secondary to osteoporosis #2 fracture of the superior pubic rami and inferior pubic rami-secondary to osteoporosis #3 Alzheimer's dementia #4 generalized physical debility secondary to multiple medical problems including advanced age and Alzheimer's dementia #5 osteoporosis - Secondary Discharge Diagnosis Chronic Problems: Chronic Problems Osteoporosis (Chronic) Mixed dementia (Chronic) Behavioral problem (Chronic) Hallucinations (Chronic) Sigmoid diverticulosis (Chronic) Hospital Course and Treatment Operations: None Procedures: None Summary of Care Provided: The patient is a 85 year old F presented to the emergency room at [facility] for evaluation after a fall at home, patient has significant Alzheimer's dementia and she had a mechanical fall approximately 6 days ago. Work-up in the emergency room included a CT scan of her pelvis and lumbar spine, there were noted to be fractures of the inferior and superior right pubic rami and also a T12 compression fracture, these appear to be acute. Patient was admitted to the third floor [facility], she was maintained on her home medications. She was seen by PT and OT and she was felt to benefit from inpatient care home services. Arrangements were made for the patient to go to TCU for these services. On 03/14/2020, patient was seen and examined: General: Alert, Cooperative, No apparent distress, Well developed HEENT: Atraumatic, PERRLA, EOMI, Normocephalic Oral: Moist Mucosa Neck: Supple, Trachea Midline, Thyroid Normal Size and Texture Lungs: Clear to auscultation, Normal air movement, No rhonchi, No wheeze, No rales Cardiovascular: Regular rate, Regular Rhythm, Normal S1, Normal S2, No murmurs, PMI Normal, No rub noted, No Gallop Abdomen: Bowel Sounds Present, Soft, Non Tender, Non-Distended Extremities: No clubbing, No cyanosis, No edema, Capillary Refill Less than 3 Seconds Skin: No rashes, No breakdown Musculoskeletal: No Tenderness to Palpation of Joints or Extremities Neurological: Cranial nerves II-XII grossly intact, Neuro grossly intact, Sensory exam intact to light touch and pain Psych/Mental Status: - - Alert but confused, she is not able to converse coherently with this examiner On 03/14/2020, patient was seen and examined and felt to be in stable condition for transfer to TCU for inpatient rehab services. Patient Problems: Active and Suspected Problems Debility (Acute) Fall (Acute) Pelvis fracture (Acute) T12 compression fracture (Acute) - Physical Exam Vitals/I&O's: Vital Signs Temp Pulse Resp BP Pulse Ox 98.4 F 84 16 132/76 H 99 03/14/20 14:30 03/14/20 14:30 03/14/20 14:30 03/14/20 14:30 03/14/20 14:30 Oxygen Delivery Method Room Air Weight: 51.9 kg Body Mass Index (BMI) 19.6 Intake and Output for Last 24 Hours 03/14/20 03/15/20 03/16/20 23:59 23:59 23:59 Intake Total 350 / 350 Output Total 0 / 0 Balance 350 / 350 Home Medications: Medications to take at Discharge Galantamine Hbr [Razadyne] 4 mg PO BIDCM 03/11/20 Quetiapine Fumarate 12.5 mg PO BID 03/11/20 Acetaminophen [Tylenol] 650 mg PO Q4H PRN PRN #1 tab 03/14/20 Alendronate Sodium [Fosamax] 70 mg PO Q7D@0700 03/14/20 Calcium Carb/Vitamin D [Os-Shashi 500MG + D] 1 tab PO BIDCM 03/14/20 Ensure Enlive 120 ml PO 4X/DAY 03/14/20 Following Prescriptions Were Given to Patient: Acetaminophen [Tylenol] 650 mg PO Q4H PRN PRN #1 tab PRN Reason: Pain Score 1-10/10 Primary Care Physician: Tom Haile Chi, MD [Primary Care Provider] - Disposition: Residential facility Minutes spent on discharge:: 32 Patient Condition:: Stable Medical Necessity - Tobacco Use Smoking Status: Never smoker Tobacco Use: Non-smoker Meaningful Use Info Meaningful Use Diagnoses (Choose all that apply): None applicable Inpatient E&M: 12280 Disch Hosp
== END 2020-03-14 14:48 | disposition skilled nursing facility (03) | DRG 536 ==
LOC: ED 17:46 → MS3 19:11
PROVIDERS: Internal Medicine; Admitting Provider Student in an Organized Health Care Education/Training Program; Emergency Provider Emergency Medicine; PCP Family Medicine Geriatric Medicine; Visit Provider Internal Medicine
DX: S32.511A Fracture of superior rim of right pubis, initial encounter for closed fracture (principal); M80.051A Age-related osteoporosis with current pathological fracture, right femur, initial encounter for fracture; F02.81 Dementia in other diseases classified elsewhere, unspecified severity, with behavioral disturbance; R44.3 Hallucinations, unspecified; G30.9 Alzheimer's disease, unspecified; W18.30XA Fall on same level, unspecified, initial encounter; Y92.009 Unspecified place in unspecified non-institutional (private) residence as the place of occurrence of the external cause; Z66 Do not resuscitate; K57.30 Diverticulosis of large intestine without perforation or abscess without bleeding
CPT/HCPCS: 36415; 72131; 72192; 80048; 83735; 85025; 85027; 87635; 97116; 97162; 97166; 97530; 99284; J7030; A4216; U0003

== ENCOUNTER 2020-03-14 15:04 | Inpatient (IN) | payer MEDICARE, SELFPAY ==
[2020-03-14 15:10] VITALS: PULSE 84; RESP 16
[2020-03-14 15:25] VITALS: BMI 19.8
[2020-03-14 15:29] VITALS: BP 130/82; PULSE 77; RESP 18; TEMP 36.6; O2SAT 92
[2020-03-14 15:51] VITALS: BP 130/82; PULSE 77; RESP 18; TEMP 36.6; O2SAT 92
[2020-03-14 15:52] VITALS: BMI 19.8
--- NOTE | 2020-03-14 15:59 | NURSING ---
FREDDY Kimball provided verbal consent for admission documentation and stated the patient is to be a DNRCC. Elizabeth Ambrosio RN also verbally confirmed this.
[2020-03-14] MEDS: LORazepam 2 MG/ML Syringe 1 MG IM (19:44)
--- NOTE | 2020-03-14 19:44 | NURSING ---
Pt agitated climbing out of bed, climbing out of chair, swinging at staff. Not able to be redirected. Pt brought out to nurses station. Dr. Haile updated. New order for 1mg IM Ativan.
[2020-03-14] MEDS: QUEtiapine 25 MG Tablet 12.5 MG PO (20:24)
--- NOTE | 2020-03-14 21:08 | PCM.HP.STD ---
Problem List (1) Debility Status: Acute (2) Fall Status: Acute (3) Pelvis fracture Status: Acute (4) T12 compression fracture Status: Acute (5) Mixed dementia Status: Chronic (6) Behavioral problem Status: Chronic (7) Hallucinations Status: Chronic (8) Sigmoid diverticulosis Status: Chronic History of Present Illness Date of Admission: 03/14/20 Chief Complaint: Here for rehabilitation, strengthening, prior to discharge home with family. 03/04/20 Fall in parking lot. 03/05/20 Unable to obtain X-rays due to patient behaviors. 03/11/20 The patient is a 85 year old Female with below past medical history presented to [facility] with fall, landed right side. 03/11/20 CT Lumbar spine showed acute T12 compression fracture. 03/11/20 CT pelvis showed acute pelvis fracture. Pain in groin, pelvis. Unable to walk. 03/11/20 Admit to Hospital. PT/OT, Consult Orthopedics. Tylenol, Oxycodone, Morphine for pain. 03/12/20 Seroquel, sitter for behavioral problems, sundowning. 03/12/20 Orthopedics recommended weight bearing as tolerated, ambulated with walker. Lovenox for DVT prophylaxis. Pain control. No surgical intervention recommended. n 03/13/20 PT/OT [facility]. 03/14/20 Admit to TCU with debility, here for rehabilitation, strengthening, prior to discharge home with family. On admission, resident violent, swinging at nursing staff, Ativan 1MG IM given. Past Medical History Past Medical History (Chronic Problems): Chronic Problems Osteoporosis (Chronic) Mixed dementia (Chronic) Behavioral problem (Chronic) Hallucinations (Chronic) Sigmoid diverticulosis (Chronic) Allergies Penicillins [PCN] Allergy (Verified 03/11/20 16:54) PT UNSURE OF REACTION Home Medications: Ambulatory Orders Medication Instructions Recorded Galantamine Hbr [Razadyne] 4 mg PO BIDCM 03/11/20 Quetiapine Fumarate 12.5 mg PO BID 03/11/20 Acetaminophen [Tylenol] 650 mg PO Q4H PRN PRN #1 tab 03/14/20 Alendronate Sodium [Fosamax] 70 mg PO Q7D@0700 03/14/20 Calcium Carb/Vitamin D [Os-Shashi 1 tab PO BIDCM 03/14/20 500MG + D] Ensure Enlive 120 ml PO 4X/DAY 03/14/20 Surgical History: - - Neck surgery, Jaw surgery. Psychiatric History: - - Severe dementia RECREATION THERAPY AIDE History: No pertinent RECREATION THERAPY AIDE history Lives: With Family Smoking Status: Never smoker Tobacco Use: Non-smoker Alcohol: Occasional Drugs: None - *Family History Paternal History Items: Cancer - Colon. Maternal History Items: Dementia Review of Systems Constitutional: Denies: Chills, Fever, Weight Change HEENT: Denies: Head Aches, Sinus Congestion, Sinus Drainage Cardiovascular: Denies: Chest Pain, Palpitations Respiratory: Denies: Cough, Shortness of breath at rest, Sputum production Gastrointestinal: Denies: Abdominal Pain, Nausea, Vomiting Genitourinary: Denies: Dysuria Musculoskeletal: Denies: Joint Pain, Joint Tenderness Skin: Denies: Rash, Wounds Neurological: Denies: Numbness, Tingling, Focal weakness Psychiatric: Denies: Anxiety, Depression, Homicidal Ideations, Suicidal Ideations Hematologic/ Lymphatic: Denies: Easy Bruising, Easy Bleeding VTE Information - Inpt Only VTE Present on Admission: No VTE Mechan Device Prophylaxis: Knee High BRYAN Hose VTE Pharm Prophylaxis ordered?: Yes Patient Problems: Active and Suspected Problems Debility (Acute) Fall (Acute) Pelvis fracture (Acute) T12 compression fracture (Acute) - Physical Exam Vitals/I&O's: Vital Signs Temp Pulse Resp BP Pulse Ox 97.9 F 77 18 130/82 H 92 03/14/20 15:51 03/14/20 15:51 03/14/20 15:51 03/14/20 15:51 03/14/20 15:51 Oxygen Delivery Method Room Air Weight: 52.254 kg Body Mass Index (BMI) 19.8 General: Alert, Oriented x3, Cooperative HEENT: Atraumatic, PERRLA, EOMI, Normocephalic Neck: Supple, No JVD, Negative Carotid Bruits Lungs: Clear to auscultation, Normal air movement Cardiovascular: Regular rate, No murmurs Abdomen: Bowel Sounds Present, Soft, Non Tender Extremities: No edema, Capillary Refill Less than 3 Seconds Skin: No rashes, No breakdown Musculoskeletal: No Tenderness to Palpation of Joints or Extremities Neurological: Cranial nerves II-XII grossly intact Psych/Mental Status: Normal Affect, Appropriate Laboratory Results 03/14/20 16:40: COVID-19 (EMRRY) Pending Current Medications Acetaminophen (Tylenol) 650 mg PO Q4H PRN PRN PRN Reason: Pain Score 1-10/10 Alendronate Sodium (Fosamax) 70 mg PO Q7D@0700 [facility] Calcium/Vitamin D (Os-Shashi 500mg + D) [facility] Last Admin: 03/14/20 18:50 Dose: Not Given Documented by: Galantamine Hydrobromide (Razadyne) [facility] Last Admin: 03/14/20 18:53 Dose: Not Given Documented by: Nutritional Formula (Lactose Free) (Ensure Enlive) 120 ml PO 4X/DAY [facility] Last Admin: 03/14/20 20:23 Dose: 120 ml Documented by: Quetiapine Fumarate (Seroquel) 12.5 mg PO BID [facility] Last Admin: 03/14/20 20:24 Dose: 12.5 mg Documented by: Tuberculin PPD (Tubersol, Aplisol, Ppd) 5 tu ID X1 ONE Stop: 03/15/20 10:01 Tuberculin PPD (Tubersol, Aplisol, Ppd) 5 tu ID X1 ONE Stop: 03/22/20 10:01 Assessment/Plan All Active Problems Fracture of right inferior pubic ramus (Acute) Fracture of right superior pubic ramus (Acute) Thoracic compression fracture (Acute) Debility (Acute) Fall (Acute) Pelvis fracture (Acute) T12 compression fracture (Acute) 85 year old female with below past medical history significant for severe mixed dementia, hospitalized for acute pelvic fracture, acute T12 compression fracture, admitted to TCU with debility, here for rehabilitation, strengthening, prior to discharge home with family. Debility - PT/OT. Pain - Tylenol 1000MG Q8H, Tramadol 50MG Q6H PRN pain (4-10). Bowel - Miralax 17GM daily, Senna/colace 1 tablet BID, Dulcolax 10MG daily PRN. Adult immunization - Administer Prevnar 13, Pneumovax 23, Fluzone as appropriate. DVT prophylaxis - Lovenox 30MG SC daily. Osteoporosis - Alendronate 70MG Qweek. Calcium deficiency - Calcium D 1 tablet BID. Nutrition - Ensure Enlive 120ML 4x/day. Mixed Dementia - Galantamine 4MG BID. Behavioral problem - Seroquel 25MG BID. Sundowning - Ativan 1MG Q8H PRN.
--- NOTE | 2020-03-15 | NURSING ---
Lying in bed with eyes closed at this time
[2020-03-15] MEDS: Acetaminophen 500 MG Tablet 1000 MG PO ×2 (08:01→20:06)
[2020-03-15] MEDS: Galantamine Hydrobromide 4 MG Tablet PO ×2 (08:02→20:05)
[2020-03-15] MEDS: Enoxaparin 30 MG/0.3 ML Syringe SC (08:02)
[2020-03-15] MEDS: Calcium Carb/Vitamin D 1 TABLET Tablet PO ×2 (08:02→20:05)
[2020-03-15] MEDS: Senna/Docusate Sodium 1 Tablet PO ×2 (08:02→20:05)
[2020-03-15] MEDS: QUEtiapine 25 MG Tablet PO ×2 (08:02→20:06)
[2020-03-15] MEDS: Polyethylene Glycol 3350 17 GM PACKET PO (08:02)
[2020-03-15 08:14] LABS: Absolute Lymphocyte Count 2.13 X10^3/uL (0.83-4.51); Basophil# 0.04 X10^3/uL; Basophil% 0.6 % (0-1); Eosinophil# 0.31 X10^3/uL; Hematocrit 38.7 % (37-47); Hemoglobin 12.8 g/dL (12.0-15.0); Lymphocyte # 2.13 X10^3/ul (4.0); Mean Corp Hgb Conc 33.1 g/dL (32-36); Mean Corpuscular Hgb 32.7 pg (27.0-32.0); Monocyte# 0.78 X10^3/uL; Monocyte% 12.5 % (0-10); NRBC Flagged by Analyzer 0 % (0-5); Neutrophil # 2.98 X10^3/uL (2.7-7.7); Neutrophil % 47.6 % (47-70); Platelet Count 313 K/mm3 (150-450); RBC Distribution Width CV 11.9 % (11.6-14.6); RBC Distribution Width SD 43.6 fl (35.1-43.9); Red Blood Count 3.91 M/mm3 (4.2-5.4); White Blood Count 6.3 K/mm3 (4.4-11.0)
[2020-03-15 08:26] LABS: Anion Gap 6 (5-15); BUN 15 mg/dL (7-18); BUN/Creat Ratio 24.8 RATIO (10-20); Calcium,Total 9.5 mg/dL (8.5-10.1); Chloride 106 mmol/L (98-107); Creatinine, Serum 0.61 mg/dL (0.55-1.02); EST Glomerular Filtration Rate 100 mL/min (>60); Est Glom Filt Rate - Afr Amer 121 mL/min (>60); Estimated Creatinine Clearance 33.93 ml/min; Glucose 100 mg/dL (74-106); Potassium 3.8 mmol/L (3.5-5.1); Sodium Level 139 mmol/L (136-145)
[2020-03-15] MEDS: LORazepam 1 MG Tablet PO (10:36)
--- NOTE | 2020-03-15 13:38 | PHA.CONS_ITS ---
<Nayla Orozco - Last Filed: 03/15/20 13:38> Progress Note - Pharmacy Subjective: TCU Admission Objective: Allergies Penicillins [PCN] Allergy (Verified 03/11/20 16:54) PT UNSURE OF REACTION Current Medications Generic Name Dose Route Start Last Admin Trade Name Freq PRN Reason Stop Dose Admin Acetaminophen 1,000 mg 03/14/20 21:30 03/15/20 08:01 Tylenol PO 1,000 mg Q8H JUAN Administration Alendronate Sodium 70 mg 03/21/20 07:00 Fosamax PO Q7D@0700 [facility] Bisacodyl 10 mg 03/14/20 21:24 Dulcolax RECTAL DAILY PRN Constipation Calcium/Vitamin D 1 tablet 03/14/20 17:00 03/15/20 08:02 Os-Sahshi 500mg + D PO 1 tablet BIDCM [facility] Administration Enoxaparin Sodium 30 mg 03/15/20 06:00 03/15/20 08:02 Lovenox SC 30 mg DAILY@0600 [facility] Administration Galantamine Hydrobromide 4 mg 03/14/20 17:00 03/15/20 08:02 Razadyne PO 4 mg BIDCM [facility] Administration Lorazepam 1 mg 03/14/20 21:24 03/15/20 10:36 Ativan PO 1 mg Q8H PRN PRN Administration AGITATION Nutritional Formula (Lactose Free) 120 ml 03/14/20 17:00 03/15/20 10:47 Ensure Enlive PO 120 ml 4X/DAY JUAN Administration Polyethylene Glycol 17 gm 03/15/20 06:00 03/15/20 08:02 Miralax PO 17 gm DAILY [facility] Administration Quetiapine Fumarate 25 mg 03/15/20 06:00 03/15/20 08:02 Seroquel PO 25 mg BID [facility] Administration Senna/Docusate Sodium 1 tablet 03/15/20 06:00 03/15/20 08:02 Senokot-S, Camryn-Colace PO 1 tablet BID [facility] Administration Tramadol HCl 50 mg 03/14/20 21:23 Ultram PO Q6H PRN PRN Pain Score 4-10/10 Tuberculin PPD 5 tu 03/22/20 10:00 Tubersol, Aplisol, Ppd ID 03/22/20 10:01 X1 ONE Problem List Debility (Acute) Fall (Acute) Pelvis fracture (Acute) T12 compression fracture (Acute) Mixed dementia (Chronic) Behavioral problem (Chronic) Hallucinations (Chronic) Sigmoid diverticulosis (Chronic) Vital Signs Temp Pulse Resp BP Pulse Ox 97.9 F 77 18 130/82 H 92 03/14/20 15:51 03/14/20 15:51 03/14/20 15:51 03/14/20 15:51 03/14/20 15:51 Oxygen Delivery Method Room Air Weight: 52.254 kg Body Mass Index (BMI) 19.8 Sodium 139 mmol/L (136-145) 03/15/20 07:45 Potassium 3.8 mmol/L (3.5-5.1) 03/15/20 07:45 Chloride 106 mmol/L (98-107) 03/15/20 07:45 Carbon Dioxide 27.0 mmol/L (21.0-32.0) 03/15/20 07:45 Anion Gap 6 (5-15) 03/15/20 07:45 BUN 15 mg/dL (7-18) 03/15/20 07:45 Creatinine 0.61 mg/dL (0.55-1.02) 03/15/20 07:45 Est GFR (MDRD) Af Amer 121 mL/min (>60) 03/15/20 07:45 Est GFR (MDRD) Non-Af 100 mL/min (>60) 03/15/20 07:45 BUN/Creatinine Ratio 24.8 RATIO (10-20) H 03/15/20 07:45 Glucose 100 mg/dL (74-106) 03/15/20 07:45 Assessment/Plan: 1. Pain: acetaminophen 1000mg Q8H and tramadol 50mg PO Q6H PRN pain 4-03/30. Please continue to monitor for increased pain and PRN usage. 2. DVT prophylaxis: enoxaparin 40mg SC daily. Dose increased due to CrCl of 55.7mL/min using actual body weight. Please continue to monitor for S/S of bleeding/DVT, renal function, hemoglobin (last 12.8g/dL) and platelets (last 313). 3. Osteoporosis/calcium deficiency: alendronate 70mg PO once weekly () and calcium/vitamin D 1T PO BIDCM. Please continue to monitor calcium and vitamin D levels (recent levels WNL), bone mineral density, and for jaw pain. Please remain upright for 30 minutes after the dose is given. 4. Mixed dementia: galantamine 4mg PO BID. Please continue to monitor HR (last 77bpm) and GI side effects. Psychotropic Medications: 1. Behavioral problem: quetiapine 25mg PO BID. GDR not appropriate. Dose recently increased. Please continue to monitor lipid panel, weight gain, and excessive drowsiness. 2. : lorazepam 1mg PO Q8H PRN agitation. GDR not appropriate. Recently started medication. Please continue to monitor for drowsiness and agitation. Unnecessary Medications: None Bowel Regimen: Miralax 17gm PO daily, senna/docusate 1T PO BID, and bisacodyl 10mg MT daily PRN constipation. Please continue to monitor for S/S of constipation, diarrhea and PRN usage. Date of Note:: 03/15/20 - Provider Comments Provider responsibility: Provider responsible to enter orders to implement recommendations <Tom Haile Chi - Last Filed: 03/15/20 14:23> Progress Note - Pharmacy Subjective: [] Objective: Allergies Penicillins [PCN] Allergy (Verified 03/11/20 16:54) PT UNSURE OF REACTION Current Medications Generic Name Dose Route Start Last Admin Trade Name Freq PRN Reason Stop Dose Admin Acetaminophen 1,000 mg 03/14/20 21:30 03/15/20 08:01 Tylenol PO 1,000 mg Q8H JUAN Administration Alendronate Sodium 70 mg 03/21/20 07:00 Fosamax PO Q7D@0700 [facility] Bisacodyl 10 mg 03/14/20 21:24 Dulcolax RECTAL DAILY PRN Constipation Calcium/Vitamin D 1 tablet 03/14/20 17:00 03/15/20 08:02 Os-Shashi 500mg + D PO 1 tablet BIDCM JUAN Administration Enoxaparin Sodium 40 mg 03/16/20 06:00 Lovenox SC DAILY@0600 JUAN Galantamine Hydrobromide 4 mg 03/14/20 17:00 03/15/20 08:02 Razadyne PO 4 mg BIDCM JUAN Administration Lorazepam 1 mg 03/14/20 21:24 03/15/20 10:36 Ativan PO 1 mg Q8H PRN PRN Administration AGITATION Nutritional Formula (Lactose Free) 120 ml 03/14/20 17:00 03/15/20 10:47 Ensure Enlive PO 120 ml 4X/DAY JUAN Administration Polyethylene Glycol 17 gm 03/15/20 06:00 03/15/20 08:02 Miralax PO 17 gm DAILY UJAN Administration Quetiapine Fumarate 25 mg 03/15/20 06:00 03/15/20 08:02 Seroquel PO 25 mg BID JUAN Administration Senna/Docusate Sodium 1 tablet 03/15/20 06:00 03/15/20 08:02 Senokot-S, Camryn-Colace PO 1 tablet BID JUAN Administration Tramadol HCl 50 mg 03/14/20 21:23 Ultram PO Q6H PRN PRN Pain Score 4-1010 Tuberculin PPD 5 tu 03/22/20 10:00 Tubersol, Aplisol, Ppd ID 03/22/20 10:01 X1 ONE Problem List Debility (Acute) Fall (Acute) Pelvis fracture (Acute) T12 compression fracture (Acute) Mixed dementia (Chronic) Behavioral problem (Chronic) Hallucinations (Chronic) Sigmoid diverticulosis (Chronic) Vital Signs Temp Pulse Resp BP Pulse Ox 97.9 F 77 18 130/82 H 92 03/14/20 15:51 03/14/20 15:51 03/14/20 15:51 03/14/20 15:51 03/14/20 15:51 Oxygen Delivery Method Room Air Weight: 52.254 kg Body Mass Index (BMI) 19.8 Sodium 139 mmol/L (136-145) 03/15/20 07:45 Potassium 3.8 mmol/L (3.5-5.1) 03/15/20 07:45 Chloride 106 mmol/L (98-107) 03/15/20 07:45 Carbon Dioxide 27.0 mmol/L (21.0-32.0) 03/15/20 07:45 Anion Gap 6 (5-15) 03/15/20 07:45 BUN 15 mg/dL (7-18) 03/15/20 07:45 Creatinine 0.61 mg/dL (0.55-1.02) 03/15/20 07:45 Est GFR (MDRD) Af Amer 121 mL/min (>60) 03/15/20 07:45 Est GFR (MDRD) Non-Af 100 mL/min (>60) 03/15/20 07:45 BUN/Creatinine Ratio 24.8 RATIO (10-20) H 03/15/20 07:45 Glucose 100 mg/dL (74-106) 03/15/20 07:45 Assessment/Plan: Psychotropic Medications: Unnecessary Medications: Bowel Regimen: - Provider Comments Provider responsibility: Provider responsible to enter orders to implement recommendations Provider Comments to Recommendations by Pharmacy: Agree
--- NOTE | 2020-03-15 14:31 | PCA ---
pt began getting confused and getting up an wandering room without staff assistance her alarm was going off around 10:00am, went into pts room to find her standing at side of bed i directed pt to her reclining chair in room. nurse jake and danielito came into give pt meds with a ice cream as a snack pt took meds and ate her ice cream i turned on some music on her tv, and handed her a magazine that was brought into room by LARISA esteves pt was flipping thru the magazine contently and talking about the pictures on each page, pt appeared calm after about 15 mins of redirecting and i left the room
--- NOTE | 2020-03-15 15:01 | CASEMGMT ---
Social Work Pt unable to complete initial assessment. Spoke with pt's dtr to complete. Explained insurance information. Pt does not have secondary insurance. Dtr understandable to private pay begins day 21 if pt is still admitted. Dtr has no issues with that payment. The plan is for the pt to return home with dtr, DAKOTAH and grandson. Will continue to follow. Wendy Roland, FERMIN DIRECTOR OF QUALITY IMPROVEMENT
--- NOTE | 2020-03-15 15:41 | PCA ---
Patients alarm going off around 12:45. Patient keep getting up from the recliner. I went in to redirect her to please sit down. Got her settled after 5 minutes. Went out of room, within a minute, alarm was going off again. Went back in room, redirected again. Put her to bed & she was crawling out. Finally, about 10 minutes later she fell asleep
[2020-03-15 18:06] VITALS: BP 128/74; PULSE 78; RESP 16; TEMP 36.6; O2SAT 97
--- NOTE | 2020-03-15 18:40 | NURSING ---
Attempted multiple times to administer evening medication. Patient sleeping soundly. Charge nurse and film processing shift supervisor nurse made aware.
[2020-03-15] MEDS: Tuberculin,Purif.prot.deriv. 50 TU/ML Vial 5 ML ID (20:15)
[2020-03-16] MEDS: Acetaminophen 500 MG Tablet 1000 MG PO ×3 (06:28→20:02)
[2020-03-16] MEDS: Senna/Docusate Sodium 1 Tablet PO ×2 (06:28→17:22)
[2020-03-16] MEDS: Polyethylene Glycol 3350 17 GM PACKET PO (06:28)
[2020-03-16] MEDS: Enoxaparin 40 MG/0.4 ML Syringe SC (06:28)
[2020-03-16] MEDS: QUEtiapine 25 MG Tablet PO ×2 (06:29→17:22)
[2020-03-16 06:40] VITALS: BP 98/44; PULSE 69; RESP 15; TEMP 36.6; O2SAT 98
[2020-03-16] MEDS: Galantamine Hydrobromide 4 MG Tablet PO ×2 (08:05→17:22)
[2020-03-16] MEDS: Calcium Carb/Vitamin D 1 TABLET Tablet PO ×2 (08:05→17:22)
[2020-03-16] MEDS: LORazepam 1 MG Tablet PO ×2 (12:49→20:25)
[2020-03-16 13:41] VITALS: BP 112/80; PULSE 92; RESP 18; TEMP 36.4; O2SAT 98
[2020-03-16] MEDS: Bisacodyl 10 MG Suppository RECTAL (14:44)
[2020-03-17 04:00] VITALS: BP 104/55; PULSE 75; RESP 16; TEMP 36.2; O2SAT 96
[2020-03-17] MEDS: Acetaminophen 500 MG Tablet 1000 MG PO ×3 (07:05→19:04)
[2020-03-17] MEDS: QUEtiapine 25 MG Tablet PO ×2 (07:05→17:21)
[2020-03-17] MEDS: Polyethylene Glycol 3350 17 GM PACKET PO (07:06)
[2020-03-17] MEDS: Senna/Docusate Sodium 1 Tablet PO ×2 (07:06→17:21)
[2020-03-17] MEDS: Enoxaparin 40 MG/0.4 ML Syringe SC (07:12)
[2020-03-17] MEDS: Calcium Carb/Vitamin D 1 TABLET Tablet PO ×2 (09:20→17:21)
[2020-03-17] MEDS: Galantamine Hydrobromide 4 MG Tablet PO ×2 (09:20→17:21)
[2020-03-17 14:12] VITALS: BP 96/58; PULSE 81; RESP 17; TEMP 36.7
[2020-03-17] MEDS: LORazepam 1 MG Tablet PO (15:44)
--- NOTE | 2020-03-17 16:46 | PCA ---
Addendum entered by Precious Gutierrez 03/17/20 17:54: Ativan given per order, pt resting at nurses' station Original Note: Patient became very restless this afternoon. Assisted to bathroom, snack given, stuffed pet dog given. Patient became agitated and trying to self transfer. 4 staff members walking with patient in [place] trying to redirect her from entering other patient rooms. After several minutes was able to direct to reclining chair at nurses station.
[2020-03-17] MEDS: Mirtazapine 15 MG Tablet 7.5 MG PO (19:03)
[2020-03-18 05:56] VITALS: BP 130/72; PULSE 74; RESP 16; TEMP 36.4; O2SAT 95
[2020-03-18] MEDS: Acetaminophen 500 MG Tablet 1000 MG PO ×3 (05:58→19:39)
[2020-03-18] MEDS: Enoxaparin 40 MG/0.4 ML Syringe SC (05:58)
[2020-03-18] MEDS: QUEtiapine 25 MG Tablet PO ×2 (05:58→18:06)
[2020-03-18] MEDS: Senna/Docusate Sodium 1 Tablet PO ×2 (05:58→18:06)
[2020-03-18] MEDS: Calcium Carb/Vitamin D 1 TABLET Tablet PO ×2 (08:48→18:06)
[2020-03-18] MEDS: Galantamine Hydrobromide 4 MG Tablet PO ×2 (08:49→18:06)
[2020-03-18 10:00] VITALS: PULSE 75; RESP 20; O2SAT 96
[2020-03-18] MEDS: traMADol 50 MG Tablet PO ×2 (13:23→22:03)
[2020-03-18 13:52] VITALS: BP 106/61; PULSE 56; RESP 17; TEMP 36.4; O2SAT 99
--- NOTE | 2020-03-18 14:49 | CHAPLAIN ---
Type of Pastoral Visit ___ Initial Visit _x__ Follow-up Visit ___ On-call Visit ___ General Patient Visit ___ Spiritual Assessment ___ Family Conference ___ Bereavement ___ Rapid Response ___ Code Blue ___ Other (describe below) Pastoral Care Referral From ___ Patient _x__ Family ___ Nurse ___ Physician ___ Packing Shed Supervisor ___ Buckle Attaching Machine Operator ___ Other (describe below) Sacrament/Intervention _x__ Active listening ___ Anointing ___ Anglican ___ Bereavement ___ Communion ___ Teresita exploration ___ ___ Life review _x__ Prayer ___ Reconciliation ___ Sacrament of Sick _x__ Supportive presence ___ Wedding ___ Other (describe below) Pastoral Comments patient is very talkative and carries on a conversation with words and phrases of which not all are connected or make a complete thought; pt appears to engage with this epic analyst and epic analyst repeats phrases and words to keep pt focused; pt does not seem distressed or concerned; this epic analyst gives several towels for pt to fold as suggested by RN; pt willingly takes towels and begins to fold them with 'reno';
[2020-03-18] MEDS: LORazepam 1 MG Tablet PO (15:42)
[2020-03-18] MEDS: Mirtazapine 15 MG Tablet 7.5 MG PO (19:39)
[2020-03-19] MEDS: Acetaminophen 500 MG Tablet 1000 MG PO ×3 (06:42→19:48)
[2020-03-19] MEDS: Enoxaparin 40 MG/0.4 ML Syringe SC (06:42)
[2020-03-19] MEDS: QUEtiapine 25 MG Tablet PO ×2 (06:42→17:26)
[2020-03-19] MEDS: Polyethylene Glycol 3350 17 GM PACKET PO (06:42)
[2020-03-19] MEDS: Senna/Docusate Sodium 1 Tablet PO (06:47)
[2020-03-19 06:48] VITALS: BP 102/56; PULSE 73; RESP 16; TEMP 36.6; O2SAT 97
[2020-03-19] MEDS: Calcium Carb/Vitamin D 1 TABLET Tablet PO (08:37)
[2020-03-19] MEDS: Galantamine Hydrobromide 4 MG Tablet PO ×2 (08:38→19:47)
[2020-03-19] MEDS: LORazepam 1 MG Tablet PO (11:02)
[2020-03-19 13:22] VITALS: BP 99/52; PULSE 75; RESP 14; TEMP 36.3; O2SAT 97
--- NOTE | 2020-03-19 17:32 | NURSING ---
pt is agitated, screaming at staff, unable to form sentances, throwing fists at staff-bedtime seroquel given at this time per manuel rn-nursing vineyard supervisor called and sitter requested for this pt -she is attemptimg to get out of chair and continues throwing things at staff-this nurse currently sitting with pt, when pt asked about pears and ana pears pt repeats one word over and over hated, hated, hated ect
--- NOTE | 2020-03-19 17:41 | NURSING ---
PT KEEPS JUMPING UP OUT OF CHAIR AND WALKING AROUND IN ROOM. NOTHING PRN DUE AT THIS TIME. BROUGHT PT OUT TO DESK AND PT LOOKED AT PAPER AND BOOK FOR ABOUT 30 MINS THEN GOT UP AGAIN AND WOULD NOT SIT DOWN. PT VERY ANGRY AND HITTING THIS NURSE. PT STARTED WALKING AROUND GOEL WITH NURSE CLOSE TO HER. PT WANTING TO GO INTO OTHER PTS ROOMS TILL ROOM 18 CAME OUT TO TALK TO PT AND THIS NURSE AND RN GOT PT IN CHAIR. TOOK PT BACK TO ROOM WITH RN SITTING WITH PT AT THIS TIME. DR.KWOK GALVEZ.
[2020-03-19] MEDS: LORazepam 2 MG/ML Syringe 1 MG IM (19:05)
[2020-03-19] MEDS: Mirtazapine 15 MG Tablet 7.5 MG PO (19:48)
[2020-03-19 19:51] VITALS: O2SAT 98
[2020-03-20] MEDS: Polyethylene Glycol 3350 17 GM PACKET PO (04:48)
[2020-03-20] MEDS: Acetaminophen 500 MG Tablet 1000 MG PO ×3 (04:48→20:08)
[2020-03-20] MEDS: QUEtiapine 25 MG Tablet PO ×2 (04:48→18:45)
[2020-03-20] MEDS: Enoxaparin 40 MG/0.4 ML Syringe SC (04:48)
[2020-03-20] MEDS: Senna/Docusate Sodium 1 Tablet PO ×2 (04:48→18:45)
[2020-03-20 04:56] VITALS: BP 110/51; PULSE 87; RESP 18; TEMP 36.6; O2SAT 97
--- NOTE | 2020-03-20 06:52 | NURSING ---
Pt alarm going off, pt sitting up on side of bed, attempted to reorient to place, walked into br, assisted to toilet, pt voided, suzi care provided, pt ambulated to chair, chair alarm in place.
[2020-03-20] MEDS: traMADol 50 MG Tablet PO ×2 (08:23→15:28)
[2020-03-20] MEDS: Galantamine Hydrobromide 4 MG Tablet PO ×2 (08:26→18:45)
[2020-03-20] MEDS: Calcium Carb/Vitamin D 1 TABLET Tablet PO ×2 (08:26→18:45)
[2020-03-20 08:32] VITALS: PULSE 84; RESP 16; O2SAT 97
--- NOTE | 2020-03-20 13:06 | NURSING ---
R' ALARM SOUNDING. R' UP OUT OF CHAIR. R' CONFUSED. TRIED TO REORIENT. 1:1 GIVEN. R' ASSISTED INTO BED. BED ALARM IN PLACE. CALL LIGHT IN REACH. WILL MONITOR.
--- NOTE | 2020-03-20 14:33 | CASEMGMT ---
Social Work IDT met with patient and dtr via conference call for care plan meeting. Discussed patient's progress in therapy. Pt's level of assist varies due to mood and agitation. Pt is min-CGA for bed mobility, tx and ambulation. Dependent for all tasks given - has a lot of difficulty following cues. Pt needs therapist to place hands on walker to begin with ambulation. Pt is CGA for toileting, min for clothing management, Nicole for UE dressing, modA for LE dressing, grooming for set up, nicole For bathing for feet. Pt needs cues to initiate tasks. ST evaluated but did not tack picker pt. ST did give extensive repot to dtr about findings. Pt is typically restless, hard to redirect, agitated and can get combative. Provided pt with therapy robotic dog, which pt enjoys, music to sing along, and towels for folding. Dtr completes menus with [employer] scout. Pt is on a regular diet, intake is variable, receives ensure, and appetite stimulant. Explained Medicare benefit and pt does not have secondary insurance so copays would be private pay. Dtr expressed no issue paying privately. Therapy explained pt is not benefiting from therapy as she gets more agitated each day. SW recommending pt return to her environment and could see better progress. Inquired about safety at home and if an alternative plan is needed. Dtr adamant about pt not going to a SNF and returning home. Dtr explained pt has declined the past month and this is baseline for pt. She is okay with taking pt home but inquired about additional assistance in the home. Explained skilled and nonskilled HHC. Emailed list of nonskilled HHC for dtr to contact. IDT recommending DC 03/26 - dtr agreeable [facility] Referral made for PT/OT/SN/[facility]. Dtr requesting BSC. Referred to [facility]. Plan: DC home with dtr 03/[address] [facility] PT/OT/SN/[facility], nonskilled HHC, [facility] - BSC. Wendy Roland, FERMIN REYESW
[2020-03-20 14:56] VITALS: BP 134/61; PULSE 75; RESP 16; TEMP 36.9; O2SAT 98
[2020-03-20] MEDS: LORazepam 1 MG Tablet PO ×2 (15:57→20:09)
--- NOTE | 2020-03-20 18:20 | NURSING ---
spoke with daughter, Pina with updates. Pina wants to speak with Dr Haile, note left for him in AM
--- NOTE | 2020-03-20 19:53 | DCINST_ITS ---
- Discharge Diagnoses Current Active Problems: Current Active and Chronic Problems Debility (Acute) Fall (Acute) Pelvis fracture (Acute) T12 compression fracture (Acute) Mixed dementia (Chronic) Behavioral problem (Chronic) Hallucinations (Chronic) Sigmoid diverticulosis (Chronic) You will use the following diet at home:: No restrictions, Regular Your food should be the consistency of: Regular Your liquids should be the consistency of: Regular/Thin Discharge Activity: Return to Normal Activity, May Shower, Use Walker Weight Bearing Status: Weight bearing as tolerated Call your doctor if you observe: Fever of 101 or Higher, Inability to urinate, Inability to have a bowel movement, Shortness of breath, Chest pain, Uncontrolled pain Allergies/Adverse Reactions: Allergies Penicillins [PCN] Allergy (Verified 03/11/20 16:54) PT UNSURE OF REACTION Medications to take at Discharge Galantamine Hbr [Razadyne] 4 mg PO BIDCM 03/11/20 Quetiapine Fumarate 12.5 mg PO BID 03/11/20 Acetaminophen [Tylenol] 1,000 mg PO Q8H tablet 03/20/20 Mirtazapine [Remeron] 7.5 mg PO QHS #30 tab 03/20/20 The following prescriptions were given: Mirtazapine [Remeron] 7.5 mg PO QHS #30 tab Transmission Status: Pending to [facility] Primary Care Physician: Tom Haile Chi, MD [Primary Care Provider] - Please follow up with your Primary Care Physician in: 1 week. Test Results: Test results from this visit will be discussed in further detail at your follow- up appointment, if applicable. Please Follow Up With: Tom Haile Chi, MD Please Follow Up With: Cortes Ruiz PA-C or Dr. Kali Brock When: After D/C Proposed Discharge Date: 03/26/20
--- NOTE | 2020-03-20 19:55 | DS.PCM_ITS ---
Discharge Date and Diagnosis - Problem List Patient Problems: Active and Suspected Problems Debility (Acute) Fall (Acute) Pelvis fracture (Acute) T12 compression fracture (Acute) Date of Admission: 03/11/20 Date of Discharge: 03/26/20 - Primary Discharge Diagnosis Acute Problems: Active Problems Debility (Acute) Fall (Acute) Pelvis fracture (Acute) T12 compression fracture (Acute) - Secondary Discharge Diagnosis Chronic Problems: Chronic Problems Osteoporosis (Chronic) Mixed dementia (Chronic) Behavioral problem (Chronic) Hallucinations (Chronic) Sigmoid diverticulosis (Chronic) Hospital Course and Treatment Imaging Results: 03/14/20 15:16 Diet: Regular - General Food consistency:: Regular Liquid Consistency:: Regular/Thin Is pt able to select menu?: No Operations: None Procedures: None Summary of Care Provided: The patient is a 85 year old Female with below past medical history significant for severe mixed dementia, hospitalized for acute pelvic fracture, acute T12 compression fracture, admitted to TCU with debility, here for rehabilitation, strengthening, prior to discharge home with family. 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 Patient Problems: Active and Suspected Problems Debility (Acute) Fall (Acute) Pelvis fracture (Acute) T12 compression fracture (Acute) - Physical Exam Vitals/I&O's: Vital Signs Temp Pulse Resp BP Pulse Ox 98.4 F 75 16 134/61 H 98 03/20/20 14:56 03/20/20 14:56 03/20/20 14:56 03/20/20 14:56 03/20/20 14:56 Oxygen Flow Rate (L/min) 97 Oxygen Delivery Method Room Air Weight: 52 kg Body Mass Index (BMI) 19.8 Intake and Output for Last 24 Hours 03/18/20 03/19/20 03/20/20 23:59 23:59 23:59 Intake Total 240 / 240 680 / 680 240 / 240 Balance 240 / 240 680 / 680 240 / 240 Current Medications Acetaminophen (Tylenol) 1,000 mg PO Q8H JUAN Last Admin: 03/20/20 14:01 Dose: 1,000 mg Documented by: Alendronate Sodium (Fosamax) 70 mg PO Q7D@0700 [facility] Bisacodyl (Dulcolax) 10 mg RECTAL DAILY PRN PRN Reason: Constipation Last Admin: 03/16/20 14:44 Dose: 10 mg Documented by: Calcium/Vitamin D (Os-Shashi 500mg + D) [facility] Last Admin: 03/20/20 18:45 Dose: 1 tablet Documented by: Enoxaparin Sodium (Lovenox) 40 mg SC DAILY@0600 [facility] Last Admin: 03/20/20 04:48 Dose: 40 mg Documented by: Galantamine Hydrobrom[facility] ([facility]) [facility] Last Admin: 03/20/20 18:45 Dose: 4 mg Documented by: Lorazepam (Ativan) 1 mg IM Q4H PRN PRN PRN Reason: AGITATION Last Admin: 03/19/20 19:05 Dose: 1 mg Documented by: Lorazepam (Ativan) 1 mg PO Q4H PRN PRN PRN Reason: AGITATION Last Admin: 03/20/20 15:57 Dose: 1 mg Documented by: Mirtazapine (Remeron) 7.5 mg PO QHS [facility] Last Admin: 03/19/20 19:48 Dose: 7.5 mg Documented by: Nutritional Formula (Lactose Free) (Ensure Enlive) 120 ml PO 4X/DAY [facility] Last Admin: 03/20/20 18:44 Dose: 120 ml Documented by: Polyethylene Glycol (Miralax) 17 gm PO DAILY [facility] Last Admin: 03/20/20 04:48 Dose: 17 gm Documented by: Quetiapine Fumarate (Seroquel) 25 mg PO BID [facility] Last Admin: 03/20/20 18:45 Dose: 25 mg Documented by: Senna/Docusate Sodium (Senokot-S, Camryn-Colace) 1 tablet PO BID [facility] Last Admin: 03/20/20 18:45 Dose: 1 tablet Documented by: Tramadol HCl (Ultram) 50 mg PO Q6H PRN PRN PRN Reason: Pain Score 4-10/10 Last Admin: 03/20/20 15:28 Dose: 50 mg Documented by: Tuberculin PPD (Tubersol, Aplisol, Ppd) 5 tu ID X1 ONE Stop: 03/22/20 10:01 Discharge Diet: No Restrictions Discharge Activity: Return to Normal Activity, May Shower, Use Walker Weight Bearing Status: Weight bearing as tolerated Call your doctor if you observe: Fever of 101 or Higher, Inability to urinate, Inability to have a bowel movement, Shortness of breath, Chest pain, Uncontrolled pain Home Medications: Medications to take at Discharge Galantamine Hbr [Razadyne] 4 mg PO BIDCM 03/11/20 Quetiapine Fumarate 12.5 mg PO BID 03/11/20 Acetaminophen [Tylenol] 1,000 mg PO Q8H tablet 03/20/20 Mirtazapine [Remeron] 7.5 mg PO QHS #30 tab 03/20/20 Following Prescriptions Were Given to Patient: Mirtazapine [Remeron] 7.5 mg PO QHS #30 tab Transmission Status: Pending to [facility] Primary Care Physician: Tom Haile Chi, MD [Primary Care Provider] - Please follow up with your Primary Care Physician in: 1 week. Please Follow Up With: Tom Haile Chi, MD Please Follow Up With: Cortes Ruiz PA-C or Dr. Kali Brock When: After D/C Disposition: Home with Home Health Minutes spent on discharge:: 35 Patient Condition:: Stable Medical Necessity - Tobacco Use Smoking Status: Never smoker Tobacco Use: Non-smoker Meaningful Use Info Meaningful Use Diagnoses (Choose all that apply): None applicable
[2020-03-20] MEDS: Mirtazapine 15 MG Tablet 7.5 MG PO (20:09)
[2020-03-21 06:41] VITALS: BP 115/68; PULSE 69; RESP 16; TEMP 36.7; O2SAT 96
[2020-03-21] MEDS: Senna/Docusate Sodium 1 Tablet PO ×2 (06:43→17:53)
[2020-03-21] MEDS: Polyethylene Glycol 3350 17 GM PACKET PO (06:43)
[2020-03-21] MEDS: QUEtiapine 25 MG Tablet PO ×2 (06:43→17:53)
[2020-03-21] MEDS: Acetaminophen 500 MG Tablet 1000 MG PO ×3 (06:43→20:49)
[2020-03-21] MEDS: Enoxaparin 40 MG/0.4 ML Syringe SC (06:44)
[2020-03-21] MEDS: Galantamine Hydrobromide 4 MG Tablet PO ×2 (07:48→17:53)
[2020-03-21] MEDS: Calcium Carb/Vitamin D 1 TABLET Tablet PO ×2 (07:48→17:53)
[2020-03-21] MEDS: Alendronate Sodium 70 MG Tablet PO (07:48)
[2020-03-21] MEDS: traMADol 50 MG Tablet PO ×2 (12:48→22:10)
--- NOTE | 2020-03-21 13:22 | CASEMGMT ---
Social Work Spoke with dtr whom inquired about DC plan. Reexplained reason for DC is pt not making progress and it would be more beneficial to be back in her environment. Dtr inquired about hospice services. Explained hospice, insurance coverage with either hospice or skilled HHC. Offered to make a referral and [facility] would contact the dtr to further explain services. Dtr agreed. Referral made to [facility]. Will continue to follow. Wendy Roland, INSPECTOR [employer] JEWEL BEARING POLISHER
[2020-03-21 14:29] VITALS: BP 108/47; PULSE 64; RESP 16; TEMP 36.7; O2SAT 94
[2020-03-21] MEDS: LORazepam 1 MG Tablet PO ×2 (15:29→20:54)
[2020-03-21] MEDS: Mirtazapine 15 MG Tablet 7.5 MG PO (20:50)
[2020-03-22 05:44] LABS: Absolute Lymphocyte Count 2.01 X10^3/uL (0.83-4.51); Absolute Neutrophil Count 1.6 X10^3/uL (2.0-7.7); Basophil# 0.05 X10^3/uL; Eosinophil# 0.37 X10^3/uL; Eosinophils% 7.8 % (0-5); Hematocrit 37.2 % (37-47); Hemoglobin 11.8 g/dL (12.0-15.0); Lymphocyte # 2.01 X10^3/ul (4.0); Lymphocyte % 42.1 % (19-41); Mean Corp Hgb Conc 31.7 g/dL (32-36); Mean Corpuscular Hgb 32.3 pg (27.0-32.0); Mean Corpuscular Volume 101.9 fL (81-99); Monocyte% 14.7 % (0-10); NRBC Flagged by Analyzer 0 % (0-5); Neutrophil # 1.62 X10^3/uL (2.7-7.7); Platelet Count 300 K/mm3 (150-450); RBC Distribution Width CV 11.8 % (11.6-14.6); RBC Distribution Width SD 43.8 fl (35.1-43.9); Red Blood Count 3.65 M/mm3 (4.2-5.4); White Blood Count 4.8 K/mm3 (4.4-11.0)
[2020-03-22 05:45] VITALS: BP 113/51; PULSE 75; RESP 16; TEMP 36.6; O2SAT 98
[2020-03-22] MEDS: Enoxaparin 40 MG/0.4 ML Syringe SC (06:00)
[2020-03-22] MEDS: Polyethylene Glycol 3350 17 GM PACKET PO (06:00)
[2020-03-22] MEDS: QUEtiapine 25 MG Tablet PO ×2 (06:01→16:10)
[2020-03-22] MEDS: Senna/Docusate Sodium 1 Tablet PO ×2 (06:01→19:33)
[2020-03-22] MEDS: Acetaminophen 500 MG Tablet 1000 MG PO ×3 (06:01→19:32)
[2020-03-22 06:03] LABS: Anion Gap 3 (5-15); BUN 26 mg/dL (7-18); BUN/Creat Ratio 37.7 RATIO (10-20); Calcium,Total 9.2 mg/dL (8.5-10.1); Chloride 105 mmol/L (98-107); Creatinine, Serum 0.69 mg/dL (0.55-1.02); EST Glomerular Filtration Rate 86 mL/min (>60); Est Glom Filt Rate - Afr Amer 104 mL/min (>60); Estimated Creatinine Clearance 33.76 ml/min; Glucose 96 mg/dL (74-106); Potassium 4.3 mmol/L (3.5-5.1); Sodium Level 137 mmol/L (136-145)
[2020-03-22] MEDS: Galantamine Hydrobromide 4 MG Tablet PO ×2 (08:35→19:33)
[2020-03-22] MEDS: Calcium Carb/Vitamin D 1 TABLET Tablet PO ×2 (08:35→19:31)
[2020-03-22] MEDS: traMADol 50 MG Tablet PO ×2 (08:37→19:29)
[2020-03-22 08:44] VITALS: PULSE 77; O2SAT 94
[2020-03-22] MEDS: Tuberculin,Purif.prot.deriv. 50 TU/ML Vial 5 ML ID (12:33)
--- NOTE | 2020-03-22 15:26 | CASEMGMT ---
Social Work Phone call from Rachael at [facility]. Pt family met with hospice today and signed preadmission papers. When pt is discharged from TCU, pt will return home to [facility] and [facility] will meet pt at home and begin start of care. D/C papers to be faxed at time of discharge. REX Bruce
[2020-03-22] MEDS: LORazepam 1 MG Tablet PO ×2 (16:09→21:28)
[2020-03-22] MEDS: Mirtazapine 15 MG Tablet 7.5 MG PO (19:33)
[2020-03-23 04:53] VITALS: BP 116/54; PULSE 70; RESP 15; TEMP 36.4; O2SAT 98
[2020-03-23] MEDS: Polyethylene Glycol 3350 17 GM PACKET PO (04:54)
[2020-03-23] MEDS: Enoxaparin 40 MG/0.4 ML Syringe SC (04:55)
[2020-03-23] MEDS: Senna/Docusate Sodium 1 Tablet PO ×2 (04:55→18:06)
[2020-03-23] MEDS: QUEtiapine 25 MG Tablet PO ×2 (04:55→18:06)
[2020-03-23] MEDS: Acetaminophen 500 MG Tablet 1000 MG PO ×3 (04:55→20:29)
[2020-03-23] MEDS: Calcium Carb/Vitamin D 1 TABLET Tablet PO ×2 (08:41→18:06)
[2020-03-23] MEDS: Galantamine Hydrobromide 4 MG Tablet PO ×2 (08:41→18:06)
--- NOTE | 2020-03-23 10:23 | NURSING ---
Pt found standing in room with alarm sounding. Pt would not cooperate with instruction to use walker or sit in chair.
[2020-03-23] MEDS: LORazepam 1 MG Tablet PO (12:12)
--- NOTE | 2020-03-23 12:24 | NURSING ---
pt insisting on walking without assistance from staff, and swatting at staff when attempted to assist her. Administered Ativan 1mg. Provided chocolate ice cream and 1 on 1 supervision.
[2020-03-23 13:45] VITALS: BP 92/50; PULSE 78; RESP 16; TEMP 36.6; O2SAT 98
[2020-03-23] MEDS: Mirtazapine 15 MG Tablet 7.5 MG PO (20:29)
[2020-03-24 06:05] VITALS: BP 124/58; PULSE 64; RESP 18; TEMP 36.3; O2SAT 96
[2020-03-24] MEDS: Polyethylene Glycol 3350 17 GM PACKET PO (06:07)
[2020-03-24] MEDS: Enoxaparin 40 MG/0.4 ML Syringe SC (06:08)
[2020-03-24] MEDS: Senna/Docusate Sodium 1 Tablet PO ×2 (06:08→16:50)
[2020-03-24] MEDS: QUEtiapine 25 MG Tablet PO ×2 (06:08→16:49)
[2020-03-24] MEDS: Acetaminophen 500 MG Tablet 1000 MG PO ×3 (06:08→20:18)
[2020-03-24] MEDS: LORazepam 1 MG Tablet PO ×3 (07:41→16:49)
[2020-03-24] MEDS: Galantamine Hydrobromide 4 MG Tablet PO ×2 (07:41→16:50)
[2020-03-24] MEDS: Calcium Carb/Vitamin D 1 TABLET Tablet PO ×2 (07:41→16:49)
--- NOTE | 2020-03-24 09:33 | NURSING ---
pt continues to attempt to self transfer. 1 on 1 required, to keep pt from transferring. Assisted to bathroom, provided food, beverages, and activities, nothing effective at decreasing desire to self transfer.
[2020-03-24 10:00] VITALS: PULSE 62; RESP 16; O2SAT 91
[2020-03-24 13:56] VITALS: BP 116/62; PULSE 71; RESP 16; TEMP 36.3; O2SAT 97
[2020-03-24] MEDS: Mirtazapine 15 MG Tablet 7.5 MG PO (20:18)
[2020-03-25 05:28] VITALS: BP 117/70; PULSE 75; RESP 16; TEMP 36.6; O2SAT 83
[2020-03-25] MEDS: Polyethylene Glycol 3350 17 GM PACKET PO (05:29)
[2020-03-25] MEDS: Enoxaparin 40 MG/0.4 ML Syringe SC (05:29)
[2020-03-25] MEDS: Senna/Docusate Sodium 1 Tablet PO ×2 (05:30→18:06)
[2020-03-25] MEDS: QUEtiapine 25 MG Tablet PO ×2 (05:30→18:06)
[2020-03-25] MEDS: Acetaminophen 500 MG Tablet 1000 MG PO ×3 (05:30→19:24)
--- NOTE | 2020-03-25 08:15 | CASEMGMT ---
Social Work [facility] as pt will DC home with [facility]. Faxed [facility] DC info. Wendy Roland, FORMING ROLL OPERATOR HEAVY DUTY HEAVY DUTY DIESEL MECHANIC
[2020-03-25] MEDS: Galantamine Hydrobromide 4 MG Tablet PO ×2 (08:45→18:06)
[2020-03-25] MEDS: Calcium Carb/Vitamin D 1 TABLET Tablet PO ×2 (08:45→18:06)
--- NOTE | 2020-03-25 11:21 | PHA.DC.MR ---
NOTE: Patient will be discharging to [facility], counseling will not be performed at this time. Notified unit pharmacy will not be up to talk with patient. Verified discharge disposition with Social work, no plans for any changes to disposition at this time. The patient's discharge medication list was reviewed for discrepancies and discrepancies were resolved. Home Medications Galantamine Hbr [Razadyne] 4 mg PO BIDCM 03/11/20 Quetiapine Fumarate 12.5 mg PO BID 03/11/20 Acetaminophen [Tylenol] 1,000 mg PO Q8H tab 03/20/20 Mirtazapine [Remeron] 7.5 mg PO QHS #30 tab 03/20/20
[2020-03-25 13:33] VITALS: BP 110/59; PULSE 78; RESP 16; TEMP 36.2; O2SAT 93
[2020-03-25] MEDS: LORazepam 1 MG Tablet PO ×2 (14:37→19:24)
--- NOTE | 2020-03-25 14:40 | NURSING ---
Attempting to self transfer. Showing signs of agitation. taken out of room. Given ice cream and also medicated with Ativan.
--- NOTE | 2020-03-25 17:00 | NURSING ---
Addendum entered by Sarah Flanagan 03/25/20 18:13: Resident less agitated. Does spit pieces of her medications out when given crushed with food. Original Note: Agitated. Continues to self transfer and starts yelling at staff and pushing at them. Tried giving food, warm blanket, chair ride around unit, music. Medicated for pain with Ultram. Supper tray ordered early. Resident calms down when supper tray arrives.
[2020-03-25] MEDS: traMADol 50 MG Tablet PO (17:05)
[2020-03-25] MEDS: Mirtazapine 15 MG Tablet 7.5 MG PO (19:24)
[2020-03-26 05:30] VITALS: BP 118/73; PULSE 77; RESP 16; TEMP 36.3; O2SAT 97
[2020-03-26] MEDS: Polyethylene Glycol 3350 17 GM PACKET PO (05:32)
[2020-03-26] MEDS: Enoxaparin 40 MG/0.4 ML Syringe SC (05:32)
[2020-03-26] MEDS: QUEtiapine 25 MG Tablet PO (05:33)
[2020-03-26] MEDS: Acetaminophen 500 MG Tablet 1000 MG PO ×2 (05:33→13:51)
[2020-03-26] MEDS: Senna/Docusate Sodium 1 Tablet PO (05:33)
[2020-03-26] MEDS: Galantamine Hydrobromide 4 MG Tablet PO (08:56)
[2020-03-26] MEDS: Calcium Carb/Vitamin D 1 TABLET Tablet PO (08:56)
[2020-03-26 10:00] VITALS: PULSE 83; RESP 16; O2SAT 99
[2020-03-26] MEDS: traMADol 50 MG Tablet PO (10:56)
[2020-03-26 11:05] VITALS: BP 118/90; PULSE 83; RESP 16; TEMP 37; O2SAT 99
--- NOTE | 2020-03-26 13:25 | MDS.RN ---
Information for the mds was obtained from review of the clinical record, interview of resident, staff, and direct observation of resident's care.
[2020-03-26 13:57] VITALS: BP 106/68; PULSE 83; RESP 16; TEMP 36.3; O2SAT 96
== END 2020-03-26 14:00 | disposition hospice, home (50) | DRG 560 ==
PROVIDERS: Admitting Provider Family Medicine Geriatric Medicine; PCP Family Medicine Geriatric Medicine; Visit Provider Family Medicine Geriatric Medicine
DX: S32.591D Other specified fracture of right pubis, subsequent encounter for fracture with routine healing (principal); F03.91 Unspecified dementia, unspecified severity, with behavioral disturbance; F05 Delirium due to known physiological condition; W19.XXXD Unspecified fall, subsequent encounter; M81.0 Age-related osteoporosis without current pathological fracture; S22.088D Other fracture of T11-T12 vertebra, subsequent encounter for fracture with routine healing
CPT/HCPCS: 36415; 80048; 85025; 87635; 92523; 92610; 97110; 97116; 97162; 97166; 97530; 97535; 97802; U0003